=== PATIENT | female | born 1930 | race Caucasian/White ===

== ENCOUNTER 2016-11-22 16:11 | Inpatient (IN) ==
[2016-11-22 16:44] LABS: Red Cell Distribution Width 22.5 % (11.5-14.5)
[2016-11-22 16:46] LABS: Basophils % 0.1 %; Eosinophils # 0.1 K/mcL (0.0-0.6); Eosinophils % 0.7 %; Hematocrit 15.6 % (35.3-44.9); Immature Granulocytes % 0.4 % (0-4); Lymphocytes # 2.5 K/mcL (0.6-4.6); Lymphocytes % 23.2 %; Mean Corpuscular Hemoglobin 13.9 pg (28.0-33.3); Mean Corpuscular Volume 55.5 fL (83.0-100.0); Mean Platelet Volume 10.6 fL (9.4-12.4); Monocytes # 1.1 K/mcL (0.0-1.3); Monocytes % 10.6 %; Nucleated Red Blood Cells 0.7 /100 WBC (0); Platelet Count 434 K/mcL (140-400); Red Blood Count 2.81 M/mcL (3.82-4.97)
[2016-11-22 16:48] LABS: INR 1.2; Prothrombin Time 12.6 Seconds (9.4-12.1)
[2016-11-22 16:50] LABS: Activated Partial Thrombo Time 22.8 Seconds (26.0-36.0); Hemoglobin 3.9 g/dL (11.5-15.4)
[2016-11-22 16:54] LABS: BUN/Creatinine Ratio 22 (6-26); Blood Urea Nitrogen 19 mg/dL (7-20); Calcium 8.3 mg/dL (8.6-10.8); Carbon Dioxide 20 mEq/L (19-29); Chloride 109 mEq/L (98-109); Glucose 92 mg/dL (70-99); Osmolality,Calculated 296 (280-300); Sodium 142 mEq/L (136-145); eGFR For African Americans > 60 (> 60); eGFR For Non-African Americans > 60 (> 60)
--- NOTE | 2016-11-22 16:56 | Emergency Department Note ---
Disposition Clinical Impression: Rectal bleeding, Rectal bleeding Anemia Qualifiers: Anemia type: unspecified type Qualified Code(s): D64.9 - Anemia, unspecified Disposition: Admitted As Inpatient Condition: Fair Referrals: Frank Mcdonald MD [Primary Care Provider] - Forms: ED Satisfaction Letter Time of Disposition: 17:16 Recheck wound or abnormal lab - General Chief Complaint: ED Recheck/Abnormal Lab/Rx Stated Complaint: Low Hgb Time Seen by Provider: 11/22/16 16:16 Source: patient Limitations: no limitations Nursing Notes Reviewed: Yes Vital Signs Reviewed: Yes - History of Present Illness HPI Narrative: 86-year-old who states that she's had some increasing weakness and a little bit of shortness of breath. She was actually having some back problems had an MRI that showed stenosis and was scheduled have injections in her back today. She had some lab work done yesterday that clotted and so she went back in today to have lab work done and was found to have a hemoglobin of 3.2 was sent in. Says intermittently she'll have a little blood in her stool but not bad. Pt Subjective Complaint: abnormal lab(s) Initial Visit (ago): day(s) (1) - Related Data Home Medications Medication Instructions Recorded Confirmed Acetaminophen w/Cod 300-30 mg 1 each PO Q6H PRN 11/22/16 11/22/16 [Tylenol w/Codeine #3] Amlodipine Besylate 10 mg PO DAILY 11/22/16 11/22/16 Aspirin Enteric Coated [Aspirin EC] 81 mg PO DAILY 11/22/16 11/22/16 Calcium Carbonate/Vitamin D3 1 each PO DAILY 11/22/16 11/22/16 [Calcium 600 + Vit D Tablet] Cyclosporine [Restasis Multidose] 1 drop OP HS 11/22/16 11/22/16 Gluc Polanco/Chondro Polanco A/Vit C/Mn 1 each PO DAILY 11/22/16 11/22/16 [Glucosamine Chondroitin Tab] LORazepam [Ativan] 1 mg PO HS 11/22/16 11/22/16 Losartan/Hydrochlorothiazide 1 each PO DAILY 11/22/16 11/22/16 [Hyzaar 100-25 Tablet] Multivitamin [Multi-Day Vitamins] 1 each PO DAILY 11/22/16 11/22/16 [place]-3/Dha/Epa/Fish Oil [Fish Oil 1,000 mg PO DAILY 11/22/16 11/22/16 1,000 mg Softgel] Omeprazole Magnesium [Prilosec Otc] 20 mg PO DAILY 11/22/16 11/22/16 Potassium Chloride [Klor-Con 10] 20 meq PO DAILY 11/22/16 11/22/16 Allergies Allergy/AdvReac Type Severity Reaction Status Date / Time No Known Allergies Allergy Verified 06/03/16 13:32 Constitutional: Denies: fever, chills, weakness, weight change Eyes: Denies: eye pain, eye discharge, vision change ENT ED: Denies: ear pain, throat pain, dental pain, hearing loss, epistaxis, congestion, dysphagia Cardiovascular: Reports: dyspnea on exertion. Denies: chest pain, palpitations , edema, syncope Respiratory: Denies: cough, dyspnea, wheezes, hemoptysis, stridor Gastrointestinal: Denies: abdominal pain, nausea, vomiting, diarrhea, constipation, hematemesis, melena, hematochezia Genitourinary: Denies: dysuria, frequency, hematuria, discharge Musculoskeletal: Denies: back pain, neck pain, arthralgia, myalgia Integumentary: Denies: rash, abrasion, lesions Neurological: Denies: headache, weakness, numbness, paresthesias, confusion, abnormal gait, vertigo Psychiatric: Denies: anxiety, depression, suicidal thoughts, homicidal thoughts , auditory hallucinations, visual hallucinations Endocrine: Denies: fatigue Hematological/Lymphatic: Denies: easy bleeding, easy bruising Allergic/Immunologic: Denies: facial swelling, urticaria Past Medical History - Past Medical History Medical history: Reports: arthritis, hypertension Psychiatric history: Reports: no psych history - Social History Smoking Status: Never smoker Smokeless Tobacco Status: No Alcohol use: Reports: none Drug use: Reports: none Physical Exam - General Limitations: no limitations General appearance: alert - Head Head exam: atraumatic, normocephalic, normal inspection - Eye Eye exam: Present: normal appearance, PERRL, EOMI - ENT ENT exam: normal exam - Neck Neck exam: Present: normal inspection, full ROM, trachea midline - Chest Chest inspection: Present: normal inspection, symmetric chest wall rise - Respiratory Respiratory exam: Present: normal lung sounds bilaterally - Cardiovascular Cardiovascular exam: Present: regular rate, normal rhythm, normal heart sounds - Abdominal Exam Abdominal exam: Present: soft, Non-Tender. Absent: tenderness, distention, guarding, rebound, rigidity - Rectal Exam [employer] Manager present during exam: Yes Rectal exam: Present: hemorrhoids, other (Brown stool) - Extremities Exam Extremities exam: Present: normal inspection, full ROM. Absent: tenderness, pedal edema - Expanded Lower Extremity Exam Neurovascular/Tendon exam: Absent: motor deficit, sensory deficit, tendon deficit Gait: not tested/not observed - Back Exam Back exam: Present: normal inspection, full ROM. Absent: tenderness - Neurological Exam Neurological exam: Present: alert, oriented X3 - Psychiatric Psychiatric exam: Present: normal affect, normal mood - Skin Skin exam: Present: warm, dry, intact, normal color Course - Reevaluation(s) Reevaluation #1: 86-year-old female comes in with symptoms of some weakness and exertional dyspnea and she was doing preop labs for a nerve injection was found to have a hemoglobin of 3.2. She says she has had some intermittent small amount of blood in her stool but she chalked it up to her external hemorrhoids. On exam here her stool was brown was no blood associated with it. She will be admitted for further evaluation and treatment. Time: 17:15 - Consultations Consultation #1: Discussed with , admit. Time: 17:16 Vital Signs Temperature 97.7 F 11/22/16 16:25 Pulse Rate 100 11/22/16 16:25 Respiratory Rate 18 11/22/16 16:25 Blood Pressure 143/58 11/22/16 16:25 O2 Sat by Pulse Oximetry 100 11/22/16 16:25 Temperature 97.7 F 11/22/16 16:25 Pulse Rate 100 11/22/16 16:25 Respiratory Rate 18 11/22/16 16:25 Blood Pressure 143/58 11/22/16 16:25 O2 Sat by Pulse Oximetry 100 11/22/16 16:25 Oxygen Delivery Oxygen Delivery Room Air Recheck wound or abnormal lab - Lab Data Result diagrams: 11/22/16 16:37 11/22/16 16:37 Lab Results 11/22/16 11/22/16 11/22/16 Range/Units 16:37 16:37 16:37 WBC 10.8 (4.3-11.1) K/mcL RBC 2.81 L (3.82-4.97) M/mcL Hgb 3.9 L* (11.5-15.4) g/dL Hct 15.6 L (35.3-44.9) % MCV 55.5 L (83.0-100.0) fL MCH 13.9 L (28.0-33.3) pg MCHC 25.0 L (31.6-35.5) g/dL RDW 22.5 H (11.5-14.5) % Plt Count 434 H (140-400) K/mcL MPV 10.6 (9.4-12.4) fL Immature Gran % 0.4 (0-4) % Seg Neutrophils % 65.0 % Lymphocytes % 23.2 % Monocytes % 10.6 % Eosinophils % 0.7 % Basophils % 0.1 % Neutrophils # 7.0 (1.6-8.9) K/mcL Lymphocytes # 2.5 (0.6-4.6) K/mcL Monocytes # 1.1 (0.0-1.3) K/mcL Eosinophils # 0.1 (0.0-0.6) K/mcL Basophils # 0.0 (0.0-0.2) K/mcL Nucleated RBCs/100 WBC 0.7 H (0) /100 WBC Platelet Estimate Normal (Normal) Hypochromasia Present A (Not Present) Poikilocytosis 2+ A (Not Present) Anisocytosis 2+ A (Not Present) Microcytosis Present A (Not Present) Ovalocytes 1+ A (Not Present) PT 12.6 H (9.4-12.1) Seconds INR 1.2 APTT 22.8 L (26.0-36.0) Seconds Sodium 142 (136-145) mEq/L Potassium 4.0 (3.5-4.5) mEq/L Chloride 109 (98-109) mEq/L Carbon Dioxide 20 (19-29) mEq/L BUN 19 (7-20) mg/dL Creatinine 0.85 (0.57-1.11) mg/dL Est GFR ( Amer) > 60 (> 60) Est GFR (Non-Af Amer) > 60 (> 60) BUN/Creatinine Ratio 22 (6-26) Glucose 92 (70-99) mg/dL Calculated Osmolality 296 (280-300) Calcium 8.3 L (8.6-10.8) mg/dL Troponin I (0-0.03) ng/mL Stool Occult Blood (Negative) Blood Type Antibody Screen Crossmatch 11/22/16 11/22/16 11/22/16 Range/Units 16:37 16:37 17:00 WBC (4.3-11.1) K/mcL RBC (3.82-4.97) M/mcL Hgb (11.5-15.4) g/dL Hct (35.3-44.9) % MCV (83.0-100.0) fL MCH (28.0-33.3) pg MCHC (31.6-35.5) g/dL RDW (11.5-14.5) % Plt Count (140-400) K/mcL MPV (9.4-12.4) fL Immature Gran % (0-4) % Seg Neutrophils % % Lymphocytes % % Monocytes % % Eosinophils % % Basophils % % Neutrophils # (1.6-8.9) K/mcL Lymphocytes # (0.6-4.6) K/mcL Monocytes # (0.0-1.3) K/mcL Eosinophils # (0.0-0.6) K/mcL Basophils # (0.0-0.2) K/mcL Nucleated RBCs/100 WBC (0) /100 WBC Platelet Estimate (Normal) Hypochromasia (Not Present) Poikilocytosis (Not Present) Anisocytosis (Not Present) Microcytosis (Not Present) Ovalocytes (Not Present) PT (9.4-12.1) Seconds INR APTT (26.0-36.0) Seconds Sodium (136-145) mEq/L Potassium (3.5-4.5) mEq/L Chloride (98-109) mEq/L Carbon Dioxide (19-29) mEq/L BUN (7-20) mg/dL Creatinine (0.57-1.11) mg/dL Est GFR ( Amer) (> 60) Est GFR (Non-Af Amer) (> 60) BUN/Creatinine Ratio (6-26) Glucose (70-99) mg/dL Calculated Osmolality (280-300) Calcium (8.6-10.8) mg/dL Troponin I 0.01 (0-0.03) ng/mL Stool Occult Blood Positive A (Negative) Blood Type AB POSITIVE Antibody Screen NEGATIVE Crossmatch See Detail Critical Care Time Critical Care Time: Yes Total Critical Care Time: 30 Attestation: The high probability of a clinically significant, sudden or life threatening deterioration of the [hematologic] system(s) required my full and direct attention, intervention and personal management. The aggregate critical care time was [30] minutes. This time is in addition to time spent performing reported procedures but includes the following: [x] Data Review and interpretation [x] Patient assessment and monitoring of vital signs [x] Documentation [x] Medication orders and management
[2016-11-22 17:10] LABS: Anisocytosis 2+ (Not Present); Hypochromasia Present (Not Present); Poikilocytosis 2+ (Not Present)
[2016-11-22 17:11] LABS: Microcytosis Present (Not Present); Ovalocytes 1+ (Not Present); Platelet Estimate Normal (Normal)
[2016-11-22] MEDS ORDERED: 0.9 % Sodium Chloride 1,000 ML ONE (17:52)
[2016-11-22] MEDS ORDERED: Naloxone 0.4 MG/ML INJ IVP PRN (22:14)
[2016-11-22] MEDS ORDERED: *HR* HYDROcodone/Acet 5/325 mg TABLET PO PRN (22:14)
[2016-11-22] MEDS ORDERED: Ondansetron ODT 4 MG TAB.RAPDIS SL PRN (22:14)
[2016-11-22] MEDS ORDERED: Acetaminophen 325 MG TABLET PO PRN (22:14)
--- NOTE | 2016-11-22 22:29 | Internal Med History&Physical ---
Date of Encounter: 11/22/16 Time of Encounter: 22:52 Assessment and Plan (1) Anemia Current visit: Yes Status: Acute Patient presents with SOB and weakness, found to have hemoglobin of 3.9. Patient is hemodynamically stable. Will transfuse 2 units pRBC and recheck hemoglobin. Anticipate that patient will like need a 3rd unit. Patient is likely anemic to some degree at baseline however we have no previous H&H to compare to. Cause of this acute drop in hemoglobin is unknown. However there is concern for a GI bleed. She does take aspirin at home so upper GI bleed is a consideration. Patient reports some minimal bright red blood when she wipes however denies large amounts of bright red blood or dark tarry stool. She does have a history of hemorrhoids. Will consult surgery for endoscopy evaluation. Will also order labs to further investigate cause of anemia. 1. Transfuse 2 units pRBC and recheck hemoglobin. Will likely need a 3rd unit 2. Trend hemoglobin 3. Consult surgery for endo eval 4. Clear liquid diet after midnight 5. Labs: folate, B12, iron profile, thyroid cascade, LDH 6. Hold aspirin Qualifiers: Anemia type: unspecified type Qualified Code(s): D64.9 - Anemia, unspecified (2) Rectal bleeding Current visit: Yes Status: Acute See plan as above. (3) Hypertension Current visit: Yes Status: Acute Patient with history of HTN. Will continue home medication. Qualifiers: Hypertension type: essential hypertension Qualified Code(s): I10 - Essential (primary) hypertension (4) GERD (gastroesophageal reflux disease) Current visit: Yes Status: Acute Patient with history of GERD. Will continue home medication Qualifiers: Esophagitis presence: esophagitis presence not specified Qualified Code(s) : K21.9 - Gastro-esophageal reflux disease without esophagitis Internal Medicine - H&P: HPI Chief complaint: Low hemoglobin Admitted From: Emergency Dept Plans for Post Hospital Care: Home History of present illness: Ms. Shabazz is a 86 year old female with PMH including arthritis, HTN, spinal stenosis, osteopena and GERD who presents to the ED with abnormal labs - patient found to have hemoglobin of 3.9. Patient was seen by her primary care doctor yesterday because she was concerned about increasing fatigue and shortness of breath. Her PCP ordered a CBC that was done today showing hemoglobin of 3.9. On discussion patient states that for the past 3-4 weeks she has noticed worsening shortness of breath especially with exertion. Patient reports that she has no underlying lung disease and that this SOB is new to her. She also states that she has felt weak and tired. Patient denies headache, lightheadedness, dizziness, syncope, chest pain/pressure, abdominal pain, nausea/vomiting, or changes in bowel or bladder. She reports that when she wipes she will notice minimal bright red blood but she denies any large amounts of bright red blood or dark, tarry stools. She just thought this was due to her hemorrhoids. Patient has never been told she had anemia before and she has never needed a transfusion. Her last colonoscopy was 20 years ago and she states it was normal. She denies any family history of colon cancer. In the ED, patient was afebrile, vital signs largely within normal limits. O2 saturation of around 95% on room air. Labs revealed a repeat Hgb of 3.9, PT of 12.6 and PTT of 22.8. Stool occult blood was positive. On exam, patient is awake and alert, in no acute distress. She did not appear particularly pale however her states that he thinks she has more color back. Heart regular rate and rhythm. Lungs clear to auscultation. Abdomen soft, nontender. No pedal edema. Past Med Surg Social Fam HX - Past Medical History Medical history: arthritis, hypertension Psychiatric history: no psych history - Past Surgical History Surgical History: appendectomy, cholecystectomy, thyroidectomy - Social History Smoking Status: Never smoker Smokeless Tobacco Status: No Alcohol use: none Drug use: none Internal Medicine - H&P: Meds Acetaminophen w/Cod 300-30 mg [Tylenol w/Codeine #3] 1 each PO Q6H PRN 11/22/16 [History] Amlodipine Besylate 10 mg PO DAILY 11/22/16 [History] Aspirin Enteric Coated [Aspirin EC] 81 mg PO DAILY 11/22/16 [History] Calcium Carbonate/Vitamin D3 [Calcium 600 + Vit D Tablet] 1 each PO DAILY [History] Cyclosporine [Restasis Multidose] 1 drop OP HS 11/22/16 [History] Gluc Polanco/Chondro Polanco A/Vit C/Mn [Glucosamine Chondroitin Tab] 1 each PO DAILY 12/06 [History] LORazepam [Ativan] 1 mg PO HS 11/22/16 [History] Losartan/Hydrochlorothiazide [Hyzaar 100-25 Tablet] 1 each PO DAILY 11/22/16 [ History] Multivitamin [Multi-Day Vitamins] 1 each PO DAILY 11/22/16 [History] [place]-3/Dha/Epa/Fish Oil [Fish Oil 1,000 mg Softgel] 1,000 mg PO DAILY 11/22/16 [History] Omeprazole Magnesium [Prilosec Otc] 20 mg PO DAILY 11/22/16 [History] Potassium Chloride [Klor-Con 10] 20 meq PO DAILY 11/22/16 [History] Allergies No Known Allergies Allergy (Verified 06/03/16 13:32) All Systems PM: A 10-system review of systems was performed and is negative for pertinent findings except as documented above in the HPI. - Constitutional Constitutional: fatigue, weakness, no chills, no fever(s), no falls - EENT Eyes: no change in vision Nose, mouth and throat: no nasal congestion, no nasal discharge, no sore throat - Cardiovascular Cardiovascular ROS IM: no chest pain, no dyspnea, no dyspnea on exertion, no edema, no irregular heart rhythm, no palpitations - Respiratory Respiratory: dyspnea on exertion, no cough, no dyspnea, no hemoptysis, no wheezing, no chest congestion - Gastrointestinal Gastrointestinal: heartburn, hematochezia, no abdominal pain, no coffee ground emesis, no constipation, no diarrhea, no hematemesis, no melena, no nausea, no vomiting - Genitourinary Genitourinary: no dysuria, no hematuria - Neurological Neurological ROS: no confusion, no dizziness, no headache(s) - Constitutional Vitals: Temp Pulse Resp BP Pulse Ox 98.1 F 88 16 135/62 95 11/22/16 21:17 11/22/16 21:17 11/22/16 21:17 11/22/16 21:17 11/22/16 21:17 General appearance: Present: A&O X 3, pleasant, no acute distress, answers questions appropriately - Head Head exam: Present: atraumatic, normal inspection, normocephalic - Eye Eye exam: Present: EOMI, normal appearance, PERRL - Respiratory Respiratory exam: Present: CTAB. Absent: decreased breath sounds, rales, rhonchi, wheezes - Cardiovascular Cardiovascular exam: Present: RRR - GI/Abdominal GI/Abdominal exam: Present: soft. Absent: distended, guarding, rebound, rigid, tenderness - Extremities Exam Extremities exam: Present: normal inspection. Absent: pedal edema - Neurological Exam Neurological exam: Present: alert, CN II-XII intact, oriented X3, no focal deficits Internal Med - H&P Results - Labs CBC & Chem 7: 11/22/16 16:37 11/22/16 16:37
[2016-11-22] MEDS: *HR* Acetaminophen w/Cod 300-30 mg 1 TAB TABLET PO PRN (23:07)
--- NOTE | 2016-11-22 23:12 | Event Note ---
Date of Encounter: 11/22/16 Time of Encounter: 22:15 I agree essentially with the assessment and plan of Resident, case discussed, plan agreed upon. The patient was evaluated at bedside. Ms. Shabazz is a 86 year old female with medical history significant for arthritis, HTN, spinal stenosis , osteopenia and GERD. She was referred by her pain specialist for evaluation and treatment of severe symptomatic anemia done pre-procedure. Hb=3.9 g/dL. Labs and imaging reviewed. Stool occult blood id positive, she reports history of internal hemmorhoids and intermittent scanty bleeding with stools. No melena. No hematemesis, no non-intentional weight loss. No abdominal pain. No personal or family history of GI malignancy. Abdomen soft, non-tender, no masses , digital rectal exam deferred. Agree with transfusion of 2u of PRBC, if <8 on recheck, repeat 1 more unit of PRBC. Will benefit from colonoscopy, perhaps EGD if colonoscopy does not explain her anemia. In view of her age, raising concern ability to complete out-patient endoscopy, and severity of anemia at presentation, will favor in-house colonoscopy. Consult endoscopist.
[2016-11-23 03:09] LABS: INR 1.2
[2016-11-23 03:12] LABS: Activated Partial Thrombo Time 27.9 Seconds (26.0-36.0)
[2016-11-23 03:24] LABS: Alanine Aminotransferase 10 Units/L (0-55); Albumin 2.8 g/dL (3.5-5.0); Albumin/Globulin Ratio 0.8 (1.1-2.2); Alkaline Phosphatase 46 Units/L (38-126); Aspartate Amino Transferase 13 Units/L (5-34); BUN/Creatinine Ratio 19 (6-26); Bilirubin,Total 0.5 mg/dL (0.2-1.2); Blood Urea Nitrogen 15 mg/dL (7-20); Calcium 8.2 mg/dL (8.6-10.8); Carbon Dioxide 21 mEq/L (19-29); Chloride 111 mEq/L (98-109); Globulin 3.4 g/dL (2.4-3.5); Glucose 99 mg/dL (70-99); Magnesium 1.8 mg/dL (1.6-2.6); Osmolality,Calculated 293 (280-300); Phosphorous 3.3 mg/dL (2.3-4.7); Potassium 3.8 mEq/L (3.5-4.5); Sodium 141 mEq/L (136-145); Total Protein 6.2 g/dL (6.0-8.3); eGFR For African Americans > 60 (> 60); eGFR For Non-African Americans > 60 (> 60)
[2016-11-23 03:44] LABS: Thyroid Stimulating Hormone 2.273 mcIU/mL (0.350-4.840)
[2016-11-23 05:12] LABS: Mean Platelet Volume 9.9 fL (9.4-12.4)
[2016-11-23 05:15] LABS: Basophils % 0.4 %; Eosinophils # 0.1 K/mcL (0.0-0.6); Eosinophils % 1.1 %; Hemoglobin 6.2 g/dL (11.5-15.4); Immature Granulocytes % 0.5 % (0-4); Immature Platelets 5.2 % (1.1-6.1); Lymphocytes # 2.1 K/mcL (0.6-4.6); Lymphocytes % 25.2 %; Mean Corpuscular HGB Conc 28.2 g/dL (31.6-35.5); Monocytes # 0.8 K/mcL (0.0-1.3); Monocytes % 10.2 %; Neutrophils # 5.1 K/mcL (1.6-8.9); Nucleated Red Blood Cells 0.6 /100 WBC (0); Platelet Count 323 K/mcL (140-400); Red Blood Count 3.44 M/mcL (3.82-4.97); Red Cell Distribution Width 30.3 % (11.5-14.5); Segmented Neutrophils % 62.6 %
[2016-11-23 05:33] LABS: Anisocytosis 3+ (Not Present); Hypochromasia Present (Not Present); Microcytosis Present (Not Present)
[2016-11-23 05:34] LABS: Ovalocytes 1+ (Not Present); Platelet Estimate Normal (Normal); Poikilocytosis 1+ (Not Present); Polychromasia 1+ (Not Present)
[2016-11-23 05:35] LABS: Reactive Lymphocytes Present (Not Present); Tear Drop Cells 1+ (Not Present)
[2016-11-23] MEDS: Multivit/Ca/Min/Fe/FA 1 TAB TABLET PO SCH (08:00)
[2016-11-23] MEDS: amLODIPine 5 MG TABLET PO SCH (08:00)
[2016-11-23] MEDS: Losartan/HCTZ 50-12.5 TABLET PO SCH (08:01)
[2016-11-23] MEDS: (Glucosamine Chondroit) PO SCH (08:01)
[2016-11-23] MEDS: (Fish Oil 1,000 Mg Softgel) PO SCH (08:01)
[2016-11-23] MEDS ORDERED: 0.9 % Sodium Chloride 500 ML ONE (08:09)
--- NOTE | 2016-11-23 08:49 | General Surgery Consult Note ---
<Chandan Figueroa - Last Filed: 11/23/16 11:11> Date of Encounter: 11/23/16 Time of Encounter: 07:50 Assessment and Plan (1) Anemia Current Visit: Yes Status: Acute She has been transfused 2 units. Currently on the 3rd unit with additional units ordered. Clears liquid diet at this time. NPO at midnight for EGD and colonoscopy tomorrow if bowel prep is adequate. Miralax bowel prep ordered. Qualifiers: Anemia type: iron deficiency Iron deficiency anemia type: unspecified iron deficiency Qualified Code(s): D50.9 - Iron deficiency anemia, unspecified (2) GERD (gastroesophageal reflux disease) Current Visit: Yes Status: Acute Management per medicine team. Continue home medication. Qualifiers: Esophagitis presence: esophagitis presence not specified Qualified Code(s) : K21.9 - Gastro-esophageal reflux disease without esophagitis (3) Hypertension Current Visit: Yes Status: Acute Management per medicine team. Continue home medication. Qualifiers: Hypertension type: essential hypertension Qualified Code(s): I10 - Essential (primary) hypertension History of Present Illness Consult date: 11/23/16 Reason for consult: endoscopy Requesting physician: Anne-Marie Santoro History of present illness: This is an 86 year old female with PMH of arthritis, HTN, spinal stenosis, osteopenia, and GERD who presented for abnormal labs. She states she was scheduled to have surgery for her spinal stenosis and underwent routine lab work when she was found to have low hemoglobin. She presented with a hemoglobin of 3.9 in the ED and reports that her only symptom was worsening shortness of breath upon exertion. She denies chest pain, palpitations, light headedness, and any syncopal episodes. She states she will occasionally have some blood on the toilet paper after wiping, but denies gross hematochezia and melena. She reports her last colonoscopy was 20 years ago and was normal. She has had a history of anemia in the past, but has never required a transfusion. She denies any family history of colon cancer. Past Med Surg Social Fam HX - Past Medical History Medical history: arthritis, hypertension Psychiatric history: no psych history - Past Surgical History Surgical History: appendectomy, cholecystectomy, thyroidectomy - Social History Smoking Status: Never smoker Smokeless Tobacco Status: No Alcohol use: none Drug use: none - Family History Father Hx Family Cardiac Disorders: Yes (hypertension) Hx Family Endocrine Disorder: Yes (diabetes) Medications and Allergies Acetaminophen w/Cod 300-30 mg [Tylenol w/Codeine #3] 1 each PO Q6H PRN 11/22/16 [History] Amlodipine Besylate 10 mg PO DAILY 11/22/16 [History] Aspirin Enteric Coated [Aspirin EC] 81 mg PO DAILY 11/22/16 [History] Calcium Carbonate/Vitamin D3 [Calcium 600 + Vit D Tablet] 1 each PO DAILY [History] Cyclosporine [Restasis Multidose] 1 drop OP HS 11/22/16 [History] Gluc Polanco/Chondro Polanco A/Vit C/Mn [Glucosamine Chondroitin Tab] 1 each PO DAILY 12/06 [History] LORazepam [Ativan] 1 mg PO HS 11/22/16 [History] Losartan/Hydrochlorothiazide [Hyzaar 100-25 Tablet] 1 each PO DAILY 11/22/16 [ History] Multivitamin [Multi-Day Vitamins] 1 each PO DAILY 11/22/16 [History] [place]-3/Dha/Epa/Fish Oil [Fish Oil 1,000 mg Softgel] 1,000 mg PO DAILY 11/22/16 [History] Omeprazole Magnesium [Prilosec Otc] 20 mg PO DAILY 11/22/16 [History] Potassium Chloride [Klor-Con 10] 20 meq PO DAILY 11/22/16 [History] Allergies No Known Allergies Allergy (Verified 06/03/16 13:32) Review of Systems All systems PM: A 10-system review of systems was performed and is negative for pertinent findings except as documented above in the HPI. - Constitutional fatigue, weakness, no fever(s), no headache(s) - EENT Nose, mouth and throat: no dizziness, no dry mouth, no dysphagia - Cardiovascular dyspnea on exertion, no chest pain, no irregular heart rhythm, no leg edema - Respiratory dyspnea on exertion, no cough, no hemoptysis - Gastrointestinal no abdominal pain, no dysphagia, no melena, no nausea, no vomiting - Genitourinary Genitourinary: no dysuria - Musculoskeletal back pain (chronic) - Hematologic/Lymphatic no easy bleeding, no easy bruising General Surgery Exam Initial Vital Signs Temp Pulse Resp BP Pulse Ox 97.7 F 100 18 143/58 100 11/22/16 16:25 11/22/16 16:25 11/22/16 16:25 11/22/16 16:25 11/22/16 16:25 - General physical appearance well developed, well nourished, no distress - Eyes normal ocular movement, pale - ENT normal mucosa, atraumatic, normocephalic - Neck trachea midline - Respiratory normal respiratory effort, clear to auscultation - Cardiovascular Cardiovascular exam: Present: RRR, murmurs - Abdomen Abdomen general surgery: Present: bowel sounds present, soft, non tender - Integumentary Integumentary general surgery: Present: warm and dry - Neurologic Present: CN 2-12 grossly intact - Musculoskeletal Present: normal posture - Psychiatric Psychiatric general surgery: Present: A&Ox3, speech is normal Exam Initial Vital Signs Temp Pulse Resp BP Pulse Ox 97.7 F 100 18 143/58 100 11/22/16 16:25 11/22/16 16:25 11/22/16 16:25 11/22/16 16:25 11/22/16 16:25 Results - Labs 11/23/16 05:01 11/23/16 02:53 Abnormal lab results RBC 3.44 M/mcL (3.82-4.97) L 11/23/16 05:01 Hgb 6.2 g/dL (11.5-15.4) L D 11/23/16 05:01 Hct 22.0 % (35.3-44.9) L 11/23/16 05:01 MCV 64.0 fL (83.0-100.0) L D 11/23/16 05:01 MCH 18.0 pg (28.0-33.3) L 11/23/16 05:01 MCHC 28.2 g/dL (31.6-35.5) L 11/23/16 05:01 RDW 30.3 % (11.5-14.5) H 11/23/16 05:01 Nucleated RBCs/100 WBC 0.6 /100 WBC (0) H 11/23/16 05:01 Reactive Lymphocytes Present (Not Present) A 11/23/16 05:01 Polychromasia 1+ (Not Present) A 11/23/16 05:01 Hypochromasia Present (Not Present) A 11/23/16 05:01 Poikilocytosis 1+ (Not Present) A 11/23/16 05:01 Anisocytosis 3+ (Not Present) A 11/23/16 05:01 Microcytosis Present (Not Present) A 11/23/16 05:01 Tear Drop Cells 1+ (Not Present) A 11/23/16 05:01 Ovalocytes 1+ (Not Present) A 11/23/16 05:01 PT 13.0 Seconds (9.4-12.1) H 11/23/16 02:53 Chloride 111 mEq/L (98-109) H 11/23/16 02:53 Calcium 8.2 mg/dL (8.6-10.8) L 11/23/16 02:53 Iron 14 mcg/dL (50-170) L 11/23/16 02:53 % Saturation 3 % (15-50) L 11/23/16 02:53 Albumin 2.8 g/dL (3.5-5.0) L 11/23/16 02:53 Albumin/Globulin Ratio 0.8 (1.1-2.2) L 11/23/16 02:53 Stool Occult Blood Positive (Negative) A 11/22/16 17:00 Diabetes panel 11/23/16 Range/Units 02:53 Sodium 141 (136-145) mEq/L Potassium 3.8 (3.5-4.5) mEq/L Chloride 111 H (98-109) mEq/L Carbon Dioxide 21 (19-29) mEq/L BUN 15 (7-20) mg/dL Creatinine 0.77 (0.57-1.11) mg/dL Glucose 99 (70-99) mg/dL Calcium 8.2 L (8.6-10.8) mg/dL AST 13 (5-34) Units/L ALT 10 (0-55) Units/L Alkaline Phosphatase 46 (38-126) Units/L Albumin 2.8 L (3.5-5.0) g/dL Thyroid panel 11/23/16 Range/Units 02:53 TSH 2.273 (0.350-4.840) mcIU/mL Calcium panel 11/23/16 Range/Units 02:53 Calcium 8.2 L (8.6-10.8) mg/dL Phosphorus 3.3 (2.3-4.7) mg/dL Albumin 2.8 L (3.5-5.0) g/dL Pituitary panel 11/23/16 11/23/16 Range/Units 02:53 02:53 Sodium 141 (136-145) mEq/L Potassium 3.8 (3.5-4.5) mEq/L Chloride 111 H (98-109) mEq/L Carbon Dioxide 21 (19-29) mEq/L BUN 15 (7-20) mg/dL Creatinine 0.77 (0.57-1.11) mg/dL Glucose 99 (70-99) mg/dL Calcium 8.2 L (8.6-10.8) mg/dL TSH 2.273 (0.350-4.840) mcIU/mL Adrenal panel 11/23/16 Range/Units 02:53 Sodium 141 (136-145) mEq/L Potassium 3.8 (3.5-4.5) mEq/L Chloride 111 H (98-109) mEq/L Carbon Dioxide 21 (19-29) mEq/L BUN 15 (7-20) mg/dL Creatinine 0.77 (0.57-1.11) mg/dL Glucose 99 (70-99) mg/dL Calcium 8.2 L (8.6-10.8) mg/dL Total Bilirubin 0.5 (0.2-1.2) mg/dL AST 13 (5-34) Units/L ALT 10 (0-55) Units/L Alkaline Phosphatase 46 (38-126) Units/L Albumin 2.8 L (3.5-5.0) g/dL All other labs normal. Consult Discharge Plan - Plan Referrals: Frank Mcdonald MD [Primary Care Provider] - - Attending Attestation I examined this patient and my medical decision-making was reviewed with the DAIRY FARMER/PA/Advanced Practice Nurse/Resident Physician. I agree with the documented findings, disposition and treatment plan as described except to the extent set forth below. <Teofilo Salas M - Last Filed: 11/24/16 07:33> Date of Encounter: 11/24/16 Review of Systems All systems PM: A 10-system review of systems was performed and is negative for pertinent findings except as documented above in the HPI. General Surgery Exam Initial Vital Signs Temp Pulse Resp BP Pulse Ox 97.7 F 100 18 143/58 100 11/22/16 16:25 11/22/16 16:25 11/22/16 16:25 11/22/16 16:25 11/22/16 16:25 Exam Initial Vital Signs Temp Pulse Resp BP Pulse Ox 97.7 F 100 18 143/58 100 11/22/16 16:25 11/22/16 16:25 11/22/16 16:25 11/22/16 16:25 11/22/16 16:25 Results - Labs 11/24/16 00:01 11/24/16 05:39 Abnormal lab results RBC 5.17 M/mcL (3.82-4.97) H 11/24/16 00:01 Hgb 10.8 g/dL (11.5-15.4) L D 11/24/16 00:01 MCV 69.2 fL (83.0-100.0) L 11/24/16 00:01 MCH 20.9 pg (28.0-33.3) L 11/24/16 00:01 MCHC 30.2 g/dL (31.6-35.5) L 11/24/16 00:01 RDW 28.4 % (11.5-14.5) H 11/24/16 00:01 Nucleated RBCs/100 WBC 0.7 /100 WBC (0) H 11/24/16 00:01 Reactive Lymphocytes Present (Not Present) A 11/23/16 05:01 Large Platelets Present (Not Present) A 11/24/16 00:01 Polychromasia 1+ (Not Present) A 11/24/16 00:01 Hypochromasia Present (Not Present) A 11/24/16 00:01 Poikilocytosis 1+ (Not Present) A 11/24/16 00:01 Anisocytosis 3+ (Not Present) A 11/24/16 00:01 Microcytosis Present (Not Present) A 11/23/16 05:01 Tear Drop Cells 1+ (Not Present) A 11/23/16 05:01 Ovalocytes 1+ (Not Present) A 11/23/16 05:01 PT 13.0 Seconds (9.4-12.1) H 11/23/16 02:53 Chloride 111 mEq/L (98-109) H 11/24/16 05:39 BUN 6 mg/dL (7-20) L 11/24/16 05:39 Calcium 8.1 mg/dL (8.6-10.8) L 11/24/16 05:39 Iron 14 mcg/dL (50-170) L 11/23/16 02:53 % Saturation 3 % (15-50) L 11/23/16 02:53 Albumin 2.8 g/dL (3.5-5.0) L 11/23/16 02:53 Albumin/Globulin Ratio 0.8 (1.1-2.2) L 11/23/16 02:53 Stool Occult Blood Positive (Negative) A 11/22/16 17:00 Diabetes panel 11/24/16 Range/Units 05:39 Sodium 141 (136-145) mEq/L Potassium 3.6 (3.5-4.5) mEq/L Chloride 111 H (98-109) mEq/L Carbon Dioxide 20 (19-29) mEq/L BUN 6 L (7-20) mg/dL Creatinine 0.68 (0.57-1.11) mg/dL Glucose 91 (70-99) mg/dL Calcium 8.1 L (8.6-10.8) mg/dL Calcium panel 11/24/16 Range/Units 05:39 Calcium 8.1 L (8.6-10.8) mg/dL Phosphorus 4.0 (2.3-4.7) mg/dL Pituitary panel 11/24/16 Range/Units 05:39 Sodium 141 (136-145) mEq/L Potassium 3.6 (3.5-4.5) mEq/L Chloride 111 H (98-109) mEq/L Carbon Dioxide 20 (19-29) mEq/L BUN 6 L (7-20) mg/dL Creatinine 0.68 (0.57-1.11) mg/dL Glucose 91 (70-99) mg/dL Calcium 8.1 L (8.6-10.8) mg/dL Adrenal panel 11/24/16 Range/Units 05:39 Sodium 141 (136-145) mEq/L Potassium 3.6 (3.5-4.5) mEq/L Chloride 111 H (98-109) mEq/L Carbon Dioxide 20 (19-29) mEq/L BUN 6 L (7-20) mg/dL Creatinine 0.68 (0.57-1.11) mg/dL Glucose 91 (70-99) mg/dL Calcium 8.1 L (8.6-10.8) mg/dL All other labs normal. - Attending Attestation I had an opportunity to evaluate this patient with the residents and medical student. Noted 20 year past history of colonoscopy. Patient denies any rectal bleeding but has presented due to shortness of breath and noted severe anemia with iron deficiency. No abdominal pain on examination and per records patient' s hemoglobin has appropriately risen with blood transfusion. Given her iron deficiency anemia due to think it would be appropriate to proceed with both an EGD and colonoscopy at this time. Will start a bowel prep today with tentative EGD /colonoscopy tomorrow.
[2016-11-23] MEDS ORDERED: Polyethylene Glycol 3350 255 GM POWDER PO ONE ×2 (09:53→12:00)
--- NOTE | 2016-11-23 12:21 | Internal Med Progress Note ---
Date of Encounter: 11/23/16 Time of Encounter: 12:19 - Assessment and plan (1) Anemia Current Visit: Yes Status: Acute Assessment and plan: Severe symptomatic anemia likely secondary to acute blood loss anemia(GI Bleed) however patient does have underlying iron deficiency anemia Patient to receive a total of 5unit PRBC transfusion No active bleeding noted at this time Surgery eval appreciated patient to undergo colonoscopy in the morning, bowel prep as per surgery advance to clear liquid diet and NPO after midnight Will continue to closely monitor will initiate iron supplementation after EGD/Colonoscopy Qualifiers: Anemia type: iron deficiency Iron deficiency anemia type: unspecified iron deficiency Qualified Code(s): D50.9 - Iron deficiency anemia, unspecified (2) GERD (gastroesophageal reflux disease) Current Visit: Yes Status: Acute Assessment and plan: continue home medications Qualifiers: Esophagitis presence: esophagitis presence not specified Qualified Code(s) : K21.9 - Gastro-esophageal reflux disease without esophagitis (3) Hypertension Current Visit: Yes Status: Acute Assessment and plan: BP within acceptable range continue home medications Qualifiers: Hypertension type: essential hypertension Qualified Code(s): I10 - Essential (primary) hypertension (4) Rectal bleeding Current Visit: Yes Status: Acute Assessment and plan: plan as listed above surgery on board (5) DVT prophylaxis Current Visit: Yes Status: Acute Assessment and plan: IPCD (6) Chronic back pain Current Visit: Yes Status: Chronic Assessment and plan: continue home meds Qualifiers: Back pain location: low back pain Back pain laterality: unspecified Sciatica presence: unspecified whether sciatica present Qualified Code(s): M54.5 - Low back pain; G89.29 - Other chronic pain - Subjective Interval history: Patient seen and examined at bedside. Resting comfortably in bed and reports of feeling better. Reports of having BRBPR but contributed it to hemorrhoids. No prior history of GI bleed reported. Denies headache, lightheadedness, sob, chest pain at this time. - Constitutional Vitals: Temp Pulse Resp BP Pulse Ox 98.3 F 81 16 136/68 96 11/23/16 12:03 11/23/16 12:03 11/23/16 12:03 11/23/16 12:03 11/23/16 12:03 General appearance: Present: cooperative, A&O X 3, pleasant, no acute distress, obese, answers questions appropriately - Head Head exam: Present: atraumatic, normocephalic - Eye Eye exam: Present: normal appearance, conjuntiva pink, sclera anicteric - Respiratory Respiratory exam: Present: CTAB. Absent: respiratory distress, wheezes - Cardiovascular Cardiovascular exam: Present: RRR, +S1, +S2 - GI/Abdominal GI/Abdominal exam: Present: normal bowel sounds, soft. Absent: distended, tenderness - Extremities Exam Extremities exam: Present: warm, radial pulses palpable and symetrical. Absent : calf tenderness, pedal edema, tenderness - Neurological Exam Neurological exam: Present: alert, oriented X3, no focal deficits - Psychiatric Psychiatric exam: Present: normal affect, normal mood Internal Medicine: Result - Labs CBC & Chem 7: 11/23/16 05:01 11/23/16 02:53 Labs: Short CBC 11/23/16 Range/Units 05:01 WBC 8.2 (4.3-11.1) K/mcL Hgb 6.2 L D (11.5-15.4) g/dL Hct 22.0 L (35.3-44.9) % Plt Count 323 (140-400) K/mcL Neutrophils # 5.1 (1.6-8.9) K/mcL BMP 11/23/16 02:53 Sodium 141 Potassium 3.8 Chloride 111 H Carbon Dioxide 21 BUN 15 Creatinine 0.77 Glucose 99 Calcium 8.2 L Liver Function 11/23/16 Range/Units 02:53 Total Bilirubin 0.5 (0.2-1.2) mg/dL AST 13 (5-34) Units/L ALT 10 (0-55) Units/L Alkaline Phosphatase 46 (38-126) Units/L Albumin 2.8 L (3.5-5.0) g/dL - ABG Interpretation ABG results: PT/INR, D-dimer PT 13.0 Seconds (9.4-12.1) H 11/23/16 02:53 Consult Discharge Plan - Plan Referrals: Frank Mcdonald MD [Primary Care Provider] -
[2016-11-23] MEDS: *HR* Acetaminophen w/Cod 300-30 mg 1 TAB TABLET PO PRN (15:41)
[2016-11-23] MEDS: (Cyclosporine [Restasis Multidose] 1 DROP) OP SCH (20:04)
[2016-11-23] MEDS: *HR* LORazepam 1 MG TABLET PO SCH (23:28)
[2016-11-24 00:27] LABS: Basophils # 0.1 K/mcL (0.0-0.2); Basophils % 0.6 %; Eosinophils # 0.2 K/mcL (0.0-0.6); Eosinophils % 1.4 %; Hematocrit 35.8 % (35.3-44.9); Immature Granulocytes % 0.6 % (0-4); Lymphocytes # 2.2 K/mcL (0.6-4.6); Lymphocytes % 20.7 %; Mean Corpuscular HGB Conc 30.2 g/dL (31.6-35.5); Mean Corpuscular Hemoglobin 20.9 pg (28.0-33.3); Mean Corpuscular Volume 69.2 fL (83.0-100.0); Neutrophils # 6.8 K/mcL (1.6-8.9); Nucleated Red Blood Cells 0.7 /100 WBC (0); Platelet Count 334 K/mcL (140-400); Red Blood Count 5.17 M/mcL (3.82-4.97); Red Cell Distribution Width 28.4 % (11.5-14.5); Segmented Neutrophils % 65.7 %
[2016-11-24 00:40] LABS: Hemoglobin 10.8 g/dL (11.5-15.4); Monocytes # 1.1 K/mcL (0.0-1.3)
[2016-11-24 00:54] LABS: Anisocytosis 3+ (Not Present); Hypochromasia Present (Not Present)
[2016-11-24 00:55] LABS: Poikilocytosis 1+ (Not Present); Polychromasia 1+ (Not Present)
[2016-11-24 00:56] LABS: Large Platelets Present (Not Present); Platelet Estimate Normal (Normal)
[2016-11-24 06:02] LABS: BUN/Creatinine Ratio 9 (6-26); Blood Urea Nitrogen 6 mg/dL (7-20); Calcium 8.1 mg/dL (8.6-10.8); Carbon Dioxide 20 mEq/L (19-29); Chloride 111 mEq/L (98-109); Glucose 91 mg/dL (70-99); Magnesium 1.8 mg/dL (1.6-2.6); Osmolality,Calculated 289 (280-300); Potassium 3.6 mEq/L (3.5-4.5); Sodium 141 mEq/L (136-145); eGFR For African Americans > 60 (> 60); eGFR For Non-African Americans > 60 (> 60)
[2016-11-24] MEDS ORDERED: *HR* Midazolam HCl 5 MG/5 ML VIAL IVP ONE ×2 (08:43→09:11)
[2016-11-24] MEDS ORDERED: Simethicone 40 MG/0.6 ML MLS IR ONE (08:44)
[2016-11-24] MEDS ORDERED: Tetracaine/Benzocaine/Butamben 200MG/SPRAY (100SPY/BOT) MM ONE (08:44)
[2016-11-24] MEDS ORDERED: *HR* FentaNYL (PF) 100 MCG/2 ML VIAL ONE (08:44)
--- NOTE | 2016-11-24 08:44 | Pre-Sedation Evaluation ---
Pre-sedation evaluation - Pre-sedation checklist Recent Vitals: Last Vital Signs Temp 97.9 F 11/24/16 03:15 Pulse 84 11/24/16 03:15 Resp 14 11/24/16 03:15 BP 142/81 11/24/16 03:15 Pulse Ox 97 11/24/16 03:15 Airway Assessment: Patient can open mouth completely, TMJ function normal Possible difficult airway: No ASA Classification *see protocol: CLASS III-Severe systemic disease Plan of Care: Pt appropriate candidate for procedure/moderate/conscious sedation
[2016-11-24] MEDS ORDERED: 0.9 % Sodium Chloride 1,000 ML IVC SCH (08:45)
[2016-11-24] MEDS: amLODIPine 5 MG TABLET PO SCH (08:56)
[2016-11-24] MEDS: (Fish Oil 1,000 Mg Softgel) PO SCH (08:56)
[2016-11-24] MEDS: Losartan/HCTZ 50-12.5 TABLET PO SCH (08:56)
[2016-11-24] MEDS: Multivit/Ca/Min/Fe/FA 1 TAB TABLET PO SCH (08:56)
[2016-11-24] MEDS: (Glucosamine Chondroit) PO SCH (08:56)
[2016-11-24] MEDS: *HR* Midazolam HCl 5 MG/5 ML VIAL IVP PRN ×6 (09:04→21:41)
[2016-11-24] MEDS: *HR* FentaNYL (PF) 100 MCG/2 ML VIAL IVP PRN ×5 (09:04→09:17)
--- NOTE | 2016-11-24 09:39 | Event Note ---
Date of Encounter: 11/24/16 Time of Encounter: 09:37 Patient underwent an EGD and colonoscopy without difficulity this am. EGD demonstrated benign appearing gastric polyps. Biopsies obtained. The colon demonstrated a circumferential mass 90cm from the anal verge (possible proximal descending colon). Partial obstructing. Biopsies obtained and area has been tattooed and clipped for marking. Will advance diet and order CEA level as well as a CT scan of the abdomen and pelvis. After these studies have been performed she can be discharged home from a surgery standpoint and we will follow up with her later this week.
[2016-11-24 11:07] LABS: Carcinoembryonic Antigen 14.4 ng/mL (0-5.0)
--- NOTE | 2016-11-24 15:20 | Internal Med Progress Note ---
Date of Encounter: 11/24/16 Time of Encounter: 15:16 - Assessment and plan (1) Colon cancer Current Visit: Yes Status: Acute Assessment and plan: Colonoscopy showed: colon demonstrated a circumferential mass 90cm from the anal verge (possible proximal descending colon). Partial obstructing. Biopsies obtained and area has been tattooed and clipped for marking. 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 CEA elevated to 14.4 Oncology consultation requested with Dr. Kim Patient informed of the news Rectal bleeding likely secondary to underlying malignancy 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 (2) Anemia Current Visit: Yes Status: Acute Assessment and plan: S/P 5units PRBC transfusion REpeat H&H within acceptable range s/p EGD and colonscopy by Dr. Salas (consultation appreciated) Will start iron supplementation Qualifiers: Anemia type: iron deficiency Iron deficiency anemia type: unspecified iron deficiency Qualified Code(s): D50.9 - Iron deficiency anemia, unspecified (3) GERD (gastroesophageal reflux disease) Current Visit: Yes Status: Acute Assessment and plan: continue home medications Qualifiers: Esophagitis presence: esophagitis presence not specified Qualified Code(s) : K21.9 - Gastro-esophageal reflux disease without esophagitis (4) Hypertension Current Visit: Yes Status: Acute Assessment and plan: BP within acceptable range continue home medications Qualifiers: Hypertension type: essential hypertension Qualified Code(s): I10 - Essential (primary) hypertension (5) Rectal bleeding Current Visit: Yes Status: Acute Assessment and plan: plan as listed above (6) DVT prophylaxis Current Visit: Yes Status: Acute Assessment and plan: IPCD (7) Chronic back pain Current Visit: Yes Status: Chronic Assessment and plan: continue home meds Qualifiers: Back pain location: low back pain Back pain laterality: unspecified Sciatica presence: unspecified whether sciatica present Qualified Code(s): M54.5 - Low back pain; G89.29 - Other chronic pain - Subjective Interval history: Patient seen and examined with family present at bedside. Patient underwent EGD and colonoscopy today which reported of a colon mass which was biopsied. A CT abd/pelvis was done to evaluate the extent of the disease. CT abd/pelvis: Apple- core lesion of the transverse colon consistent with patient's primary site of colon cancer, concern for hepatic and pulmonary lesions for metastatic disease. I had a detailed discussion with the patient and let her know of her diagnosis and findings of the colonoscopy. Patient wants to speak to Oncology and explore what her available options are at this time. She denies any recurrent episodes of chest pain, SOB, LGIB, BRBPR, abd pain, n/v, fever, or chills. - Constitutional Vitals: Temp Pulse Resp BP Pulse Ox 97.7 F 69 16 137/73 98 11/24/16 12:04 11/24/16 13:20 11/24/16 12:04 11/24/16 12:04 11/24/16 12:04 General appearance: Present: cooperative, A&O X 3, pleasant, no acute distress, obese, answers questions appropriately - Head Head exam: Present: atraumatic, normocephalic - Eye Eye exam: Present: PERRL, conjuntiva pink, sclera anicteric - Respiratory Respiratory exam: Present: CTAB. Absent: accessory muscle use, rales, rhonchi, wheezes - Cardiovascular Cardiovascular exam: Present: RRR, +S1, +S2. Absent: diastolic murmur, gallop, rubs, systolic murmur - GI/Abdominal GI/Abdominal exam: Present: normal bowel sounds, soft, no peritoneal signs. Absent: distended, tenderness - Extremities Exam Extremities exam: Present: warm, radial pulses palpable and symetrical. Absent : calf tenderness, cyanotic, pedal edema - Neurological Exam Neurological exam: Present: alert, oriented X3 - Psychiatric Psychiatric exam: Present: normal affect, normal mood Internal Medicine: Result - Labs CBC & Chem 7: 11/24/16 00:01 11/24/16 05:39 Labs: Short CBC 11/24/16 Range/Units 00:01 WBC 10.4 (4.3-11.1) K/mcL Hgb 10.8 L D (11.5-15.4) g/dL Hct 35.8 (35.3-44.9) % Plt Count 334 (140-400) K/mcL Neutrophils # 6.8 (1.6-8.9) K/mcL BMP 11/24/16 05:39 Sodium 141 Potassium 3.6 Chloride 111 H Carbon Dioxide 20 BUN 6 L Creatinine 0.68 Glucose 91 Calcium 8.1 L - ABG Interpretation ABG results: PT/INR, D-dimer PT 13.0 Seconds (9.4-12.1) H 11/23/16 02:53 - Impressions Impressions Abdomen/Pelvis CT 11/24/16 12:30 IMPRESSION: 1. Large apple-core mass lesion of the transverse colon, consistent with patient's primary site of colon cancer. 2. Two subcentimeter low-density lesions within the hepatic parenchyma are too small to definitively characterize, though statistically most likely either cysts or hemangiomata. However, given the patient's colonic mass lesion, suggest short-term abdominal CT follow-up of these lesions to ensure stability, with the next abdominal CT recommended in 3-6 months. 3. Small bilateral pleural effusions with multiple bibasilar subcentimeter pulmonary nodules. These are felt to most likely represent benign granulomata. However, the patient is at high risk for pulmonary metastatic disease, and short-term chest CT follow-up in 3-6 months is strongly advised. D/ / 11/24/2016 14:29:07 Giovani Lang MD / bcarter Interpreting Provider: Giovani Lang MD - VTE Documentation of Mechanical Device: Intermittent pneumatic compression device Consult Discharge Plan - Plan Referrals: Frank Mcdonald MD [Primary Care Provider] -
[2016-11-24] MEDS ORDERED: Sennosides/Docusate Sodium TABLET PO PRN (15:24)
[2016-11-24] MEDS ORDERED: Insulin DETEMIR 100 UNIT/ML X5UNITS SQ SCH (21:00)
[2016-11-24] MEDS: *HR* LORazepam 1 MG TABLET PO SCH (21:04)
[2016-11-24] MEDS: *HR* Acetaminophen w/Cod 300-30 mg 1 TAB TABLET PO PRN (21:04)
[2016-11-24] MEDS: (Cyclosporine [Restasis Multidose] 1 DROP) OP SCH (21:05)
[2016-11-25 04:05] LABS: BUN/Creatinine Ratio 12 (6-26); Blood Urea Nitrogen 9 mg/dL (7-20); Calcium 8.4 mg/dL (8.6-10.8); Carbon Dioxide 23 mEq/L (19-29); Chloride 109 mEq/L (98-109); Glucose 89 mg/dL (70-99); Magnesium 1.9 mg/dL (1.6-2.6); Osmolality,Calculated 288 (280-300); Potassium 3.6 mEq/L (3.5-4.5); Sodium 140 mEq/L (136-145); eGFR For African Americans > 60 (> 60); eGFR For Non-African Americans > 60 (> 60)
[2016-11-25 04:56] LABS: Basophils # 0.1 K/mcL (0.0-0.2); Basophils % 0.9 %; Eosinophils # 0.3 K/mcL (0.0-0.6); Eosinophils % 2.6 %; Hematocrit 35.4 % (35.3-44.9); Hemoglobin 10.2 g/dL (11.5-15.4); Immature Granulocytes % 0.3 % (0-4); Immature Platelets 5.5 % (1.1-6.1); Lymphocytes # 2.1 K/mcL (0.6-4.6); Lymphocytes % 21.7 %; Mean Corpuscular HGB Conc 28.8 g/dL (31.6-35.5); Mean Corpuscular Hemoglobin 20.4 pg (28.0-33.3); Mean Corpuscular Volume 70.8 fL (83.0-100.0); Monocytes % 10.5 %; Neutrophils # 6.2 K/mcL (1.6-8.9); Nucleated Red Blood Cells 0.3 /100 WBC (0); Platelet Count 294 K/mcL (140-400); Red Cell Distribution Width 29.3 % (11.5-14.5)
[2016-11-25 05:30] LABS: Anisocytosis 3+ (Not Present); Hypochromasia Present (Not Present); Platelet Estimate Normal (Normal)
[2016-11-25 05:31] LABS: Polychromasia 1+ (Not Present)
--- NOTE | 2016-11-25 07:03 | Electrocardiograph Report ---
[address] [place] [id number] Test Date: 2016-11-22 Pat Name: Tita Shabazz Department: 103 Room: 2N14 Gender: F Metal Painter: : 1930 Requested By: Anne-Marie Santoro Order Number: [id number] Reading MD: Destin Restrepo MD Measurements Intervals [place] Rate: 112 P: 47 CT: 129 QRS: 9 QRSD: 82 T: 138 QT: 298 QTc: 364 Interpretive Statements SINUS TACHYCARDIA Electronically Signed On 11-25-2016 7:01:51 EST by Destin Restrepo MD
[2016-11-25 07:30] VITALS: BP 134/68
[2016-11-25] MEDS: amLODIPine 5 MG TABLET PO SCH (07:38)
[2016-11-25] MEDS: Multivit/Ca/Min/Fe/FA 1 TAB TABLET PO SCH (07:38)
[2016-11-25] MEDS: Losartan/HCTZ 50-12.5 TABLET PO SCH (07:38)
[2016-11-25] MEDS: (Fish Oil 1,000 Mg Softgel) PO SCH (07:39)
[2016-11-25] MEDS: (Glucosamine Chondroit) PO SCH (07:39)
--- NOTE | 2016-11-25 09:01 | Oncology Inp Consult Note ---
Date of Encounter: 11/25/16 Time of Encounter: 09:00 Assessment and Plan (1) Colonic mass Status: Acute Assessment and plan: 86-year-old female with a transverse colon mass status post colonoscopy and biopsy off the transverse colon/proximal descending colon mass, final pathology is pending. His tiny lesions in the liver, lungs noted, further evaluate with CT scan of the chest with contrast as outpatient. Surgery has been consulted, and she had undergone colonoscopy- possible surgical intervention as an outpatient. Will review pathology and imaging results in our tumor board conference. The likelihood of malignancy with a colon mass and treatment for the same discussed with her briefly. Anemia symptomatic status post transfusions, oral iron, possible iron infusion prior to surgical procedure. She will return to my clinic if she is discharged home later this week. Baseline CEA is at 14 (11/2016) Plan of care discussed with patient and her in detail who stated understanding. - Data of Consult Requesting Physician: Anne-Marie Santoro MD Primary Care Provider: Frank Mcdonald MD - Consult Narrative Reason for consult: colon mass, anemia History of present illness: Ms. Shabazz is a 86 year old female with medical history significant for arthritis , hypertension, spinal stenosis, gastroesophageal reflex disease who was seen recently by Dr. Mcdonald due to increasing fatigue and shortness of breath. A CBC done showed a hemoglobin of 3.9 she was referred for hospitalization and further workup. She had felt weak and tired and short of breath. She had a colonoscopy several years ago in the past. There is no family history of colon cancer. Patient underwent transfusion support hemoglobin has improved to 10.2 she is clinically felt better. She had also undergone a colonoscopy and upper GI endoscopy. As He showed a partially obstructive growth likely in the descending colon which was biopsied, final pathology pending. CT scan of the abdomen and pelvis with contrast was performed that showed a large apple core mass lesion in the transverse colon, subcentimeter hypodensity in the liver too small to characterize, bilateral basal lung nodules, pleural effusion. Patient denies any cough with expectoration and weight loss abdominal pain. Past Med Surg Social Fam HX - Past Medical History Medical history: arthritis, hypertension Psychiatric history: no psych history - Past Surgical History Surgical History: appendectomy, cholecystectomy, thyroidectomy - Social History Smoking Status: Never smoker Smokeless Tobacco Status: No Alcohol use: none Drug use: none - Family History Father Hx Family Cardiac Disorders: Yes (hypertension) Hx Family Endocrine Disorder: Yes (diabetes) Medications and Allergies Acetaminophen w/Cod 300-30 mg [Tylenol w/Codeine #3] 1 each PO Q6H PRN 11/22/16 [History] Amlodipine Besylate 10 mg PO DAILY 11/22/16 [History] Aspirin Enteric Coated [Aspirin EC] 81 mg PO DAILY 11/22/16 [History] Calcium Carbonate/Vitamin D3 [Calcium 600 + Vit D Tablet] 1 each PO DAILY [History] Cyclosporine [Restasis Multidose] 1 drop OP HS 11/22/16 [History] Gluc Polanco/Chondro Polanco A/Vit C/Mn [Glucosamine Chondroitin Tab] 1 each PO DAILY 12/06 [History] LORazepam [Ativan] 1 mg PO HS 11/22/16 [History] Losartan/Hydrochlorothiazide [Hyzaar 100-25 Tablet] 1 each PO DAILY 11/22/16 [ History] Multivitamin [Multi-Day Vitamins] 1 each PO DAILY 11/22/16 [History] [place]-3/Dha/Epa/Fish Oil [Fish Oil 1,000 mg Softgel] 1,000 mg PO DAILY 11/22/16 [History] Omeprazole Magnesium [Prilosec Otc] 20 mg PO DAILY 11/22/16 [History] Potassium Chloride [Klor-Con 10] 20 meq PO DAILY 11/22/16 [History] Allergies No Known Allergies Allergy (Verified 06/03/16 13:32) Review of systems: 14 point ROS is otherwise negative Oncology - Exam - Constitutional Vitals: Temp Pulse Resp BP Pulse Ox 98.3 F 83 16 134/68 93 L 11/25/16 07:29 11/25/16 07:29 11/25/16 07:29 11/25/16 07:29 11/25/16 07:29 General appearance: average body habitus, no acute distress - Head Head exam: Present: atraumatic, normal inspection - Eye Eye exam: Present: sclera anicteric - ENT ENT exam: Present: mucous membranes moist - Neck Neck exam: Present: full ROM, normal inspection - Respiratory Respiratory exam: Present: CTAB - Cardiovascular Cardiovascular exam: Present: +S1, +S2 - GI/Abdominal GI/Abdominal exam: Present: normal bowel sounds, soft - Extremities Exam Extremities exam: Present: normal inspection - Neurological Exam Neurological exam: Present: alert, oriented X3, no focal deficits - Psychiatric Psychiatric exam: Present: normal mood - Skin Skin exam: Present: normal color, pallor Additional comments: without rashes Oncology - Results - Labs Labs: Short CBC 11/25/16 Range/Units 04:06 WBC 9.7 (4.3-11.1) K/mcL Hgb 10.2 L (11.5-15.4) g/dL Hct 35.4 (35.3-44.9) % Plt Count 294 (140-400) K/mcL Neutrophils # 6.2 (1.6-8.9) K/mcL BMP 11/24/16 11/25/16 05:39 03:33 Sodium 141 140 Potassium 3.6 3.6 Chloride 111 H 109 Carbon Dioxide 20 23 BUN 6 L 9 Creatinine 0.68 0.77 Glucose 91 89 Calcium 8.1 L 8.4 L - Imaging and Cardiology CT scan - abdomen Status: image reviewed by me Consult Discharge Plan - Plan Referrals: Frank Mcdonald MD [Primary Care Provider] -
--- NOTE | 2016-11-25 09:45 | Discharge Summary ---
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 (2) Anemia Priority: Primary Status: Acute Qualifiers: Anemia type: iron deficiency Iron deficiency anemia type: unspecified iron deficiency Qualified Code(s): D50.9 - Iron deficiency anemia, unspecified (3) GERD (gastroesophageal reflux disease) Priority: Secondary Status: Chronic Qualifiers: Esophagitis presence: esophagitis presence not specified Qualified Code(s) : K21.9 - Gastro-esophageal reflux disease without esophagitis (4) Hypertension Priority: Secondary Status: Chronic Qualifiers: Hypertension type: essential hypertension Qualified Code(s): I10 - Essential (primary) hypertension (5) Rectal bleeding Priority: Primary Status: Acute (6) DVT prophylaxis Priority: Secondary Status: Acute (7) Chronic back pain Priority: Secondary Status: Chronic Qualifiers: Back pain location: low back pain Back pain laterality: unspecified Sciatica presence: unspecified whether sciatica present Qualified Code(s): M54.5 - Low back pain; G89.29 - Other chronic pain - Discharge Medications Prescriptions: Ferrous Sulfate 325 mg PO DAILY #30 tablet Sennosides/Docusate Sodium [Senna Plus] 1 each PO BID PRN #30 tablet PRN Reason: Constipation Home Medications: Acetaminophen w/Cod 300-30 mg [Tylenol w/Codeine #3] 1 each PO Q6H PRN 11/22/16 [History] Amlodipine Besylate 10 mg PO DAILY 11/22/16 [History] Aspirin Enteric Coated [Aspirin EC] 81 mg PO DAILY 11/22/16 [History] Calcium Carbonate/Vitamin D3 [Calcium 600 + Vit D Tablet] 1 each PO DAILY [History] Cyclosporine [Restasis Multidose] 1 drop OP HS 11/22/16 [History] Gluc Polanco/Chondro Polanco A/Vit C/Mn [Glucosamine Chondroitin Tab] 1 each PO DAILY 12/06 [History] LORazepam [Ativan] 1 mg PO HS 11/22/16 [History] Losartan/Hydrochlorothiazide [Hyzaar 100-25 Tablet] 1 each PO DAILY 11/22/16 [ History] Multivitamin [Multi-Day Vitamins] 1 each PO DAILY 11/22/16 [History] [place]-3/Dha/Epa/Fish Oil [Fish Oil 1,000 mg Softgel] 1,000 mg PO DAILY 11/22/16 [History] Omeprazole Magnesium [Prilosec Otc] 20 mg PO DAILY 11/22/16 [History] Potassium Chloride [Klor-Con 10] 20 meq PO DAILY 11/22/16 [History] Ferrous Sulfate 325 mg PO DAILY #30 tablet 11/25/16 [Rx] Sennosides/Docusate Sodium [Senna Plus] 1 each PO BID PRN #30 tablet 11/25/16 [ Rx] Allergies/Adverse Reactions: Allergies No Known Allergies Allergy (Verified 06/03/16 13:32) Procedures/tests Complete & Pending: Procedures Performed prior 72 hours Category Date Time Status abdominal/pelvis CT with contrast [CT abd pelvis w iv Cat Scan 11/24/16 12:30 Completed and oral] [CT] Stat ECG 12 lead ECG [ECG] Routine Y 11/22/16 16:19 Completed Date of admission: 11/22/16 18:07 Primary care physician: Frank Mcdonald MD Consults: 11/22/16 22:53 Consult to Surgery [CONS] Routine Consulting Provider: [facility] Reason for Consult: Patient with hemoglobin of 3.7 on admission. She does take ASA. Reports minimal bright red blood per rectum. Stool hemocult positive. Consult for evaluation for possible endoscopy evaluatin. Call Completed: No 11/24/16 15:14 Consult to Oncology [CONS] Stat Consulting Provider: Oncology [facility] Reason for Consult: colon cancer Call Completed: Yes Discharging clinician: Anne-Marie Santoro Anticipated date of discharge: 11/25/16 - Patient Status Disposition: Home, Self-Care Condition: Good Functional capacity at discharge: independent ambulation Overall status at discharge: patient is back to baseline - Discharge Instructions Follow Up With: Frank Mcdonald MD [Primary Care Provider] - (SENT WEB REQUEST ON 11-25-16 @ [id number]) Additional Instructions: Please follow up with your primary care physician and Oncology (Dr. Kim) within five days after your discharge from the hospital. Ferrous sulfate has been added to your home medications due to your iron deficiency anemia. Ferrous sulfate can cause constipation, due to which you are given a prescription for Senna (stool softener) as needed for constipation. Please resume all your home medications as prescribed by your primary care physician. Please seek medical help if you experience rectal bleed, shortness of breath, or chest pain. - Diet and Activity Activity: resume usual activities as tolerated Diet: advance to your usual diet Hospital course: Ms. Shabazz is a 86 year old female with PMH of GERD, arthritis, HTN, spinal stenosis who was admitted for symptomatic anemia with concern for lower GI bleed. Patient received PRBC transfusions and underwent EGD/Colonoscopy performed by Dr. Salas. Colonoscopy revealed a transverse colon mass consistent with colon cancer. Oncology consultation was requested with Dr. Kim. Patient was seen by Dr. Kim and outpatient follow up is recommended. Patient's repeat H&H is within acceptable range and no active bleeding episodes have been reported since hospitalization. Patient was also noted to have iron deficiency anemia for which she was started on iron supplements. Patient is currently hemodynamically stable and will be discharged to home with follow up with PCP and Oncology. Patient is to continue all her home meds and iron supplements. Patient and (present at bedside) demonstrate understanding of the diagnosis and agree with the discharge care and plan. - Time Spent with Patient Total time spent providing and/or coordinating discharge services: Greater than 30 minutes - Constitutional Vitals: Temp Pulse Resp BP Pulse Ox 98.3 F 83 16 134/68 93 L 11/25/16 07:29 11/25/16 07:29 11/25/16 07:29 11/25/16 07:29 11/25/16 07:29 General appearance: Present: cooperative, A&O X 3, pleasant, no acute distress, obese, answers questions appropriately - Head Head exam: Present: atraumatic, normocephalic - Eye Eye exam: Present: PERRL, conjuntiva pink, sclera anicteric - Respiratory Respiratory exam: Present: CTAB. Absent: accessory muscle use, rales, rhonchi, wheezes - Cardiovascular Cardiovascular exam: Present: RRR, +S1, +S2. Absent: diastolic murmur, gallop, rubs, systolic murmur - GI/Abdominal GI/Abdominal exam: Present: normal bowel sounds, soft, no peritoneal signs. Absent: distended, tenderness - Extremities Exam Extremities exam: Present: warm, radial pulses palpable and symetrical. Absent : calf tenderness, cyanotic, pedal edema - Neurological Exam Neurological exam: Present: alert, oriented X3, no focal deficits. Absent: facial droop, speech deficit - Psychiatric Psychiatric exam: Present: normal affect, normal mood - VTE Documentation of Mechanical Device: Intermittent pneumatic compression device
== END 2016-11-25 11:38 | disposition home or self-care (01) | DRG 376 ==
LOC: EMEROO 16:11 → 2NNU 18:07
PROVIDERS: ADMIT Family Medicine; ATTEND Internal Medicine
PROC: ENDOEBX (~2016-11-22)
PROC: ENDOCBX (~2016-11-22)

== ENCOUNTER 2016-12-10 11:20 | Inpatient (IN) ==
--- NOTE | 2016-12-10 12:32 | History & Physical Report ---
Date of Encounter: 12/10/16 Time of Encounter: 12:31 24 Hour HP Update - Instructions Instructions: If the History and Physical is less than 30 days old and was completed prior to A.M. admission and or procedure and has NOT been updated on calendar day of procedure please complete this update prior to performing procedure. - Update Patient reports changes in Medical Condition: No Changes in assessment/condition: No Changes in Medication: No Preop tests/diagnostics Reviewed: Yes Pre-Op MRSA Screen: Negative Surgery Remains Indicated: Yes Consent for Planned Operative Procedure(s) Verified: Yes - Pre-Operative Checklist Preoperative Checklist Indicated: No Prophylactic Antibiotic Ordered: Yes Home Medications Include Beta Shilpa: No Beta Shilpa Taken Today (Day of Surgery): No Beta Shilpa Taken Yesterday (Day Prior to Surgery): No Is VTE Prophylaxis Indicated?: NO
--- NOTE | 2016-12-10 12:52 | Anesthesia Evaluation PreOp ---
Date of Encounter: 12/10/16 Time of Encounter: 13:00 - Past History Planned Operation: Robotic Transverse Colon Resection Cardiac History: HTN Pulmonary History: Denies Any Significant HX INVESTOR RELATIONS COORDINATOR History: Denies Any Significant HX Other Medical History: Denies Any Significant HX Anesthesia History: No Prior Anesthetic Complications : No Alcohol Use: none Drug use: none Medications and Allergies Acetaminophen w/Cod 300-30 mg [Tylenol w/Codeine #3] 1 each PO Q6H PRN 11/22/16 [History] Amlodipine Besylate 10 mg PO DAILY 11/22/16 [History] Aspirin Enteric Coated [Aspirin EC] 81 mg PO DAILY 11/22/16 [History] Calcium Carbonate/Vitamin D3 [Calcium 600 + Vit D Tablet] 1 each PO DAILY [History] Cyclosporine [Restasis Multidose] 1 drop OP HS 11/22/16 [History] Gluc Polanco/Chondro Polanco A/Vit C/Mn [Glucosamine Chondroitin Tab] 1 each PO DAILY 12/06 [History] LORazepam [Ativan] 1 mg PO HS 11/22/16 [History] Losartan/Hydrochlorothiazide [Hyzaar 100-25 Tablet] 1 each PO DAILY 11/22/16 [ History] Multivitamin [Multi-Day Vitamins] 1 each PO DAILY 11/22/16 [History] [place]-3/Dha/Epa/Fish Oil [Fish Oil 1,000 mg Softgel] 1,000 mg PO DAILY 11/22/16 [History] Omeprazole Magnesium [Prilosec Otc] 20 mg PO DAILY 11/22/16 [History] Potassium Chloride [Klor-Con 10] 20 meq PO DAILY 11/22/16 [History] Acetaminophen w/Cod 300-30 mg [Tylenol w/Codeine #3] 1 each PO Q6HR PRN #10 tablet 11/25/16 [Rx] Ferrous Sulfate 325 mg PO DAILY #30 tablet 11/25/16 [Rx] Sennosides/Docusate Sodium [Senna Plus] 1 each PO BID PRN #30 tablet 11/25/16 [ Rx] Allergies No Known Allergies Allergy (Verified 06/03/16 13:32) - Meds/Allergy Pre-op Review Medications Reviewed: Yes Allergies Reviewed: Yes Beta Blockers on Current Med List: No Anesthesia Results - Labs Laboratory Tests 03/06/17 03/10/17 03:33 15:55 Hgb 11.2 L Hct 38.1 Plt Count 235 Sodium 140 Potassium 3.6 BUN 9 Creatinine 0.77 - Imaging EKG: report reviewed (Sinus Tach) Additional studies: EF 60% from 2013 ECHO Anesthesia Exam O2 Sat Height 1.6 m Height 1.6 m Weight 68.492 kg Weight 68.492 kg O2 Sat by Pulse Oximetry 98 Vital Signs Temp Pulse Resp BP Pulse Ox 99.1 F 109 18 125/67 98 12/10/16 12:24 12/10/16 12:24 12/10/16 12:24 12/10/16 12:24 12/10/16 12:24 Height: 5'3 Weight: 151 lbs NPO (# of Hours): MN Pain Scale: 0 - HEENT Pupil (Motor): Pupils equal, EOMI Mallampati: II Teeth: Normal Oral Opening: Less than or equal to 3 (Minimal neck extension) - INVESTOR RELATIONS COORDINATOR LOC: Oriented INVESTOR RELATIONS COORDINATOR Motor: Normal RUE, Normal LUE, Normal RLE, Normal LLE, Normal Face INVESTOR RELATIONS COORDINATOR Sensory: Normal: RUE, LUE, RLE, LLE, Face - Cardiac Rhythm: Regular Murmur: None JVD: No Carotid Bruit: No - Pulmonary Breath Sounds: bilateral Clear Respiratory Effort: Symmetrical Anesthesia Assess/Plan ASA Score: 2 Modified Lora Scale for Level of Consciousness: Cooperative, oriented, and tranquil Anesthetic Plan: General Monitoring Plan: Standard Monitors Recovery Plan: PACU (Discussed GA, agrees to proceed)
[2016-12-10] MEDS ORDERED: Ondansetron 4 MG/2 ML VIAL ONE (13:14)
[2016-12-10] MEDS ORDERED: Dexamethasone 4 MG/ML VIAL ONE (13:14)
[2016-12-10] MEDS ORDERED: *HR* FentaNYL (PF) 100 MCG/2 ML VIAL ONE ×2 (13:14→14:54)
[2016-12-10] MEDS ORDERED: Lidocaine -MPF 2% 2 ML VIAL ONE (13:14)
[2016-12-10] MEDS ORDERED: *HR* Rocuronium Bromide 50 MG/5 ML VIAL ONE (13:14)
[2016-12-10] MEDS ORDERED: *HR* Propofol 200 MG/20 ML VIAL IVP ONE (13:14)
[2016-12-10] MEDS ORDERED: cefOXitin 2,000 MG in D5% in Water (Mini-Bag+) 100 ML IVPB ONE (13:19)
[2016-12-10] MEDS ORDERED: Famotidine 20 MG/2 ML VIAL IVP ONE (13:20)
[2016-12-10] MEDS ORDERED: Neostigmine Methylsulfate 3 MG/3 ML SYRINGE ONE (13:38)
[2016-12-10] MEDS: Ringers Solution, Lactated 1,000 ML IVC SCH ×2 (13:43→19:22)
[2016-12-10] MEDS ORDERED: *HR* Morphine 10 MG/ML VIAL ONE ×2 (14:43→16:27)
[2016-12-10] MEDS ORDERED: Naloxone 0.4 MG/ML INJ IVP PRN ×2 (15:05→20:37)
[2016-12-10] MEDS ORDERED: Ondansetron 4 MG/2 ML VIAL IVP ONE (15:05)
[2016-12-10] MEDS ORDERED: Dexamethasone 4 MG/ML VIAL IVP ONE (15:05)
[2016-12-10] MEDS ORDERED: *HR* Labetalol 100 MG/20 ML MDV IVP PRN (15:05)
[2016-12-10] MEDS ORDERED: *HR* HYDROmorphone (PF) 1 MG/ML SYRINGE IVP PRN (15:05)
[2016-12-10] MEDS ORDERED: CefOXitin 2,000 MG VIAL IVPB ONE (16:35)
--- NOTE | 2016-12-10 19:08 | Operative Note ---
Date of procedure: 12/10/16 Pre-op diagnosis: Transverse colon cancer Post-op diagnosis: same Procedure: 1. Robot assisted laparoscopic lysis of adhesions (45min). 2. Robot assisted transverse colectomy. Anesthesia: CARLOS ALBERTOA Surgeon: Teofilo Salas Boring Machine Operator: Amina Stokes Boring Machine Operator Other: LEESA Hubbard Specimen: transverse colon Condition: stable Disposition: PACU Procedure in Detail: Date of surgery: 12/10/16 After properly identifying the patient, the patient brought to the operating room and placed in the supine position. Appropriate IV sedation is achieved followed by general endotracheal intubation, the abdomen was prepped and draped in normal sterile fashion. Timeout was performed noting the patient's name and procedure to be performed. A subumbilical incision with a 15 blade scalpel was made down to the level of the rectus fascia. The rectus fascia was incised and the abdomen was entered and a 12 mm port was placed to the incision. Laparoscopic camera was placed to the port which showed no injury to the intra- abdominal organs upon entry. The abdomen was insufflated with carbon dioxide and a right lower quadrant and left lower quadrant 8 mm port were then placed under direct camera visualization. An additional left upper quadrant 8 mm port along the anterior axillary line just below the costal margin was placed under direct camera visualization. The patient was placed in the reverse Trendelenburg position and the da Sabine robot was brought towards the operative field and docked appropriately. The patient had a right paramedian incision and there were noted significant omental adhesions in the right upper quadrant. Laparoscopic bovie cauterization and sharp dissection were used to help take down these adhesions along the right upper quadrant extending down to the right lower quadrant. There were also adhesions from the liver to the abdominal wall which were taken down with Bovie cauterization and sharp dissection. There were further adhesions in the right upper quadrant from the patient's previous cholecystectomy extending down to the right lower quadrant where the patient had a previous appendectomy. The right lateral adhesions were taken down with Bovie cauterization. Additionally, the adhesions to the liver were considerable due to the previous surgical procedure and were taken down with blunt dissection and sharp dissection. The transverse colon was then examined which demonstrated the large carcinoma with blue tattooing noted. This was lifted anteriorly to allow for visualization of the mesentery at its origin. This was scored with Bovie cauterization and dissection was carried through into the middle colic vessels were identified and transected with a laparoscopic vessel sealer. The dissection was carried continuously through the mesentery until the duodenum was encountered. The mesenteric dissection was continued laterally to the right and left with Bovie cauterization. The approximate time for the lysis of adhesion was 45 minutes. The left lateral colonic sidewall attachments were taken down with Bovie cauterization and blunt dissection. The splenic flexure was dissected free in a similar fashion. The omentum was dissected away from the splenic flexure as well. Portions of the omentum near the transverse colon were left covering the transverse colon and cancer with the laparoscopic vessel sealer. The remnant of the omentum was left as part of the specimen from this portion towards the hepatic flexure. The decision was then made to transect the distal transverse colon near the splenic flexure to allow for maintain proper blood supply to the left colonic stump. The robotic stapler was then brought onto the operative field and used to transect across the colon at this level. The mesentery was then transected and divided with a laparoscopic vessel sealer down towards the mesentery and origin of the middle colic vessel which was already transected. The decision was then made to go ahead and convert this to the open procedure. A 15 blade scalpel was used to make an incision along the midline several centimeters from the xiphoid process to above the level of the umbilicus for length of approximately 10 cm. Bovie cauterization was used to dissect through the subcutaneous tissue and abdominis fascia into the abdomen was entered. A skin protector or Phil was brought onto the operative field and placed to protect the subcutaneous tissue. Once this was performed the transverse colon was extruded through the opening along with the mesentery and omental covering. The decision was then made to transect the colon near the hepatic flexure with a SID stapler. The remaining mesenteric remnant was transected with a hand -held LigaSure. This specimen was then removed from the abdomen and submitted to pathology. The decision was then made to perform a side to side anastomosis using a SID stapler and a 60 TA stapler to close the enterotomy. The enterotomy was imbricated with a running 3-0 silk suture. The right upper quadrant was briefly irrigated with normal saline solution and hemostasis was noted to be maintained. Seprafilm was placed within the abdomen and the skin protection device was then removed without difficulty. The abdominal wall fascia was closed with non-looped #1 PDS sutures starting from the superior and inferior aspect and tied at the midline. Subcutaneous tissue was reapproximated with 2-0 Vicryl sutures in the epidermal and dermal layers were reapproximated with sintia. The subumbilical incision was closed by reapproximating the fascia with an 0 Vicryl suture in a [id number] fashion. The subcutaneous tissue was reapproximated with 3-0 Vicryl sutures and the epidermal and dermal layers were reapproximated with a 4-0 Monocryl suture. The epidermal and dermal layers for the remaining incisions were closed with sintia. Needle, sponge, and instrument counts were correct 2 and the incisions were covered with 2 x 2's and 4 x 4's. The patient was aroused from IV sedation, extubated in the operating room without complication, and transported to the recovery room in stable condition.
[2016-12-10] MEDS: *HR* Morphine 2 MG/ML SYRINGE IVP PRN ×2 (19:51→20:03)
--- NOTE | 2016-12-10 20:25 | Anesthesia Evaluation Post Op ---
Date of Encounter: 12/10/16 Time of Encounter: 20:24 - Vital Signs Vital Signs: Vital Signs/O2 Sat, Most Current Temp Pulse Resp BP Pulse Ox 98.6 F 93 16 135/80 98 12/10/16 20:13 12/10/16 20:13 12/10/16 20:13 12/10/16 20:13 12/10/16 20:13 - Lungs Lungs: Clear Ascult./Percussion - Airway Airway: Non-obstructed - Cardiovascular Regular Rate - Mental Status Mental Status: Asleep with brisk response to light stimulation - Pain Pain Scale: 4 Pain Scale used: Numeric (1 - 10) - Nausea Vomiting Nausea Vomiting: Not Present - Hydration Hydration: Ice chips, Mercado catheter - Discharge PostOp Status: Transfer Patient to floor
[2016-12-11] MEDS: 0.9 % Sodium Chloride 1,000 ML IVC SCH ×4 (00:14→23:32)
[2016-12-11] MEDS: cefOXitin 1,000 MG in D5% in Water (Mini-Bag+) 100 ML IVPB SCH ×3 (00:14→16:34)
[2016-12-11 06:53] LABS: Immature Granulocytes % 0.4 % (0-4); Red Cell Distribution Width 29.8 % (11.5-14.5)
[2016-12-11 06:55] LABS: Basophils % 0.2 %; Hematocrit 31.4 % (35.3-44.9); Hemoglobin 9.5 g/dL (11.5-15.4); Lymphocytes # 1.5 K/mcL (0.6-4.6); Lymphocytes % 10.8 %; Mean Corpuscular HGB Conc 30.3 g/dL (31.6-35.5); Mean Corpuscular Hemoglobin 22.5 pg (28.0-33.3); Mean Corpuscular Volume 74.4 fL (83.0-100.0); Mean Platelet Volume 10.2 fL (9.4-12.4); Monocytes # 1.3 K/mcL (0.0-1.3); Monocytes % 9.5 %; Neutrophils # 11.1 K/mcL (1.6-8.9); Platelet Count 396 K/mcL (140-400); Red Blood Count 4.22 M/mcL (3.82-4.97); Segmented Neutrophils % 79.1 %
[2016-12-11 07:06] LABS: BUN/Creatinine Ratio 19 (6-26); Blood Urea Nitrogen 14 mg/dL (7-20); Carbon Dioxide 24 mEq/L (19-29); Chloride 108 mEq/L (98-109); Glucose 135 mg/dL (70-99); Osmolality,Calculated 293 (280-300); Potassium 3.3 mEq/L (3.5-4.5); Sodium 140 mEq/L (136-145); eGFR For African Americans > 60 (> 60); eGFR For Non-African Americans > 60 (> 60)
[2016-12-11 07:17] LABS: Calcium 8.4 mg/dL (8.6-10.8)
[2016-12-11] MEDS ORDERED: Potassium Chloride Elixir 20 MEQ/15 ML UDC PO ONE (07:30)
[2016-12-11] MEDS: Pantoprazole 40 MG VIAL IVP SCH (07:54)
[2016-12-11] MEDS: *HR* HYDROmorphone (PF) 1 MG/ML SYRINGE IVP PRN ×6 (08:16→23:34)
--- NOTE | 2016-12-11 11:38 | General Surgery Progress Note ---
Date of Encounter: 12/11/16 Time of Encounter: 11:30 - Assessment and Plan (1) Colon cancer Current Visit: No Status: Acute POD #1 Robot assisted laparoscopic lysis of adhesions (45min), Robot assisted transverse colectomy with Dr. 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 (2) Hypertension Current Visit: No Status: Chronic Normotensive Continue to monitor and adjust medications as necessary May resume home regimen Qualifiers: Hypertension type: essential hypertension Qualified Code(s): I10 - Essential (primary) hypertension (3) GERD (gastroesophageal reflux disease) Current Visit: No Status: Chronic PPI therapy daily Qualifiers: Esophagitis presence: esophagitis presence not specified Qualified Code(s) : K21.9 - Gastro-esophageal reflux disease without esophagitis (4) Hypokalemia Current Visit: Yes Status: Acute Replace potassium Repeat am labs (5) DVT prophylaxis Current Visit: No Status: Acute Continue heparin 5,000 units SQ twice daily for DVT prophylaxis Subjective Patient reports: still having pain (surgical discomfort), tolerating liquids well, flatus (this morning), bowel movement, diarrhea (this morning), afebrile, other (Patient out of bed this morning) Objective Vital Signs - Last 8 Hours Temp Pulse Resp BP Pulse Ox 12/11/16 08:41 98 F 100 16 130/73 99 12/11/16 05:00 97.6 F 104 14 109/71 98 Intake and Output 12/10/16 12/11/16 12/11/16 23:59 07:59 15:59 Intake Total 975 / 975 100 / 100 Output Total 225 / 225 350 / 350 350 / 350 Balance 750 / 750 -250 / -250 -350 / -350 Intake: IV Fluids 975 / 975 100 / 100 Lactated Ringers 1,000 ML 975 / 975 @ 25 mls/hr IVC .Q24H [facility] Rx#:[id number] Mefoxin 1,000 MG In 100 / 100 Dextrose 5% (Minibag+) 100 ML 100 ML @ 200 mls/ hr IVPB Q8HR [facility] Rx#: [id number] Oral 0 / 0 Output: Estimated Blood Loss 75 / 75 Urine Amount (Catheter) 150 / 150 Catheter 350 / 350 350 / 350 Other: Meal NPO - General physical appearance well developed, well nourished, no distress - Eyes normal ocular movement - ENT normal mucosa, atraumatic, normocephalic - Neck Neck exam: trachea midline - Respiratory normal respiratory effort, clear to auscultation - Cardiovascular Cardiovascular exam: Present: RRR - Abdomen Abdomen: Present: bowel sounds present (minimal, hypoactive), soft, tender ( expected post-operative tenderness) - Incision Incision: Present: clean and dry, intact - Neurologic CN 2-12 grossly intact - Psychiatric oriented to time, oriented to person, oriented to place, speech is normal, memory intact - Labs 12/12/16 04:30 12/12/16 04:30 Diabetes panel 12/11/16 Range/Units 06:23 Sodium 140 (136-145) mEq/L Potassium 3.3 L (3.5-4.5) mEq/L Chloride 108 (98-109) mEq/L Carbon Dioxide 24 (19-29) mEq/L BUN 14 (7-20) mg/dL Creatinine 0.73 (0.57-1.11) mg/dL Glucose 135 H (70-99) mg/dL Calcium 8.4 L (8.6-10.8) mg/dL Calcium panel 12/11/16 Range/Units 06:23 Calcium 8.4 L (8.6-10.8) mg/dL Pituitary panel 12/11/16 Range/Units 06:23 Sodium 140 (136-145) mEq/L Potassium 3.3 L (3.5-4.5) mEq/L Chloride 108 (98-109) mEq/L Carbon Dioxide 24 (19-29) mEq/L BUN 14 (7-20) mg/dL Creatinine 0.73 (0.57-1.11) mg/dL Glucose 135 H (70-99) mg/dL Calcium 8.4 L (8.6-10.8) mg/dL Adrenal panel 12/11/16 Range/Units 06:23 Sodium 140 (136-145) mEq/L Potassium 3.3 L (3.5-4.5) mEq/L Chloride 108 (98-109) mEq/L Carbon Dioxide 24 (19-29) mEq/L BUN 14 (7-20) mg/dL Creatinine 0.73 (0.57-1.11) mg/dL Glucose 135 H (70-99) mg/dL Calcium 8.4 L (8.6-10.8) mg/dL - VTE Documentation of Mechanical Device: Intermittent pneumatic compression device Consult Discharge Plan - Plan Referrals: Teofilo Salas MD [Partnered Physician] - 12/26/16 2:35 pm Frank Mcdonald MD [Primary Care Provider] - - Attending Attestation I examined this patient and my medical decision-making was reviewed with the CORRECTION OFFICER/PA/Advanced Practice Nurse/Resident Physician. I agree with the documented findings, disposition and treatment plan as described except to the extent set forth below. Noted the above physical exam and assessment and I agree with the above plan. Clears for now. Hypokalemia treated with K-elixir. Follow CBC and BMP.
[2016-12-11] MEDS: *HR* Heparin 5,000 UNIT/ML VIAL SQ SCH (18:46)
[2016-12-12] MEDS: *HR* HYDROmorphone (PF) 1 MG/ML SYRINGE IVP PRN ×3 (04:11→13:47)
[2016-12-12 05:23] LABS: BUN/Creatinine Ratio 14 (6-26); Blood Urea Nitrogen 9 mg/dL (7-20); Calcium 8.1 mg/dL (8.6-10.8); Carbon Dioxide 20 mEq/L (19-29); Chloride 107 mEq/L (98-109); Glucose 151 mg/dL (70-99); Osmolality,Calculated 290 (280-300); Potassium 3.4 mEq/L (3.5-4.5); Sodium 139 mEq/L (136-145); eGFR For African Americans > 60 (> 60); eGFR For Non-African Americans > 60 (> 60)
[2016-12-12 05:25] LABS: Basophils % 0.2 %; Mean Platelet Volume 10.2 fL (9.4-12.4)
[2016-12-12 05:26] LABS: Hematocrit 34.5 % (35.3-44.9); Hemoglobin 10.3 g/dL (11.5-15.4); Immature Granulocytes % 0.7 % (0-4); Lymphocytes # 1.3 K/mcL (0.6-4.6); Lymphocytes % 5.4 %; Mean Corpuscular HGB Conc 29.9 g/dL (31.6-35.5); Mean Corpuscular Hemoglobin 22.9 pg (28.0-33.3); Mean Corpuscular Volume 76.8 fL (83.0-100.0); Monocytes # 1.8 K/mcL (0.0-1.3); Monocytes % 7.4 %; Neutrophils # 20.5 K/mcL (1.6-8.9); Platelet Count 370 K/mcL (140-400); Red Blood Count 4.49 M/mcL (3.82-4.97); Red Cell Distribution Width 30.3 % (11.5-14.5); Segmented Neutrophils % 86.3 %
[2016-12-12 05:28] LABS: Basophils # 0.1 K/mcL (0.0-0.2)
[2016-12-12 06:01] LABS: Hypochromasia Present (Not Present)
[2016-12-12 06:02] LABS: Anisocytosis 2+ (Not Present); Platelet Estimate Normal (Normal)
[2016-12-12] MEDS: *HR* Heparin 5,000 UNIT/ML VIAL SQ SCH (06:21)
[2016-12-12] MEDS: Pantoprazole 40 MG VIAL IVP SCH (07:43)
[2016-12-12] MEDS ORDERED: Potassium Chloride Elixir 20 MEQ/15 ML UDC PO ONE (09:18)
[2016-12-12] MEDS: 0.9 % Sodium Chloride 1,000 ML IVC SCH (10:44)
[2016-12-12 12:32] LABS: Bilirubin,Urine Negative (Negative); Blood,Urine Negative (Negative); Clarity,Urine Cloudy (Clear); Color,Urine Yellow (Yellow); Glucose,Urine (UA) 250 mg/dL (Normal); Ketones,Urine Negative (Negative); Leukocyte Esterase,Urine Small (Negative); Nitrite,Urine Negative (Negative); Protein,Urine 30 mg/dL (Neg-Trace); Specific Gravity,Urine 1.028 (1.010-1.025); Urobilinogen,Urine Normal (Normal)
[2016-12-12 12:35] LABS: Bacteria,Urine None Seen per hpf (None-Few); Hyaline Casts,Urine None Seen per lpf (None-Few); Squamous Epithelial Cell,Urine Many per lpf (None-Few)
--- NOTE | 2016-12-12 13:16 | General Surgery Progress Note ---
Date of Encounter: 12/12/16 Time of Encounter: 13:00 - Assessment and Plan (1) Colon cancer Current Visit: No Status: Acute POD #2 Robot assisted laparoscopic lysis of adhesions (45min), Robot assisted transverse colectomy with Dr. 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 (2) Hypertension Current Visit: No Status: Chronic Normotensive Continue to monitor and adjust medications as necessary May resume home regimen Qualifiers: Hypertension type: essential hypertension Qualified Code(s): I10 - Essential (primary) hypertension (3) GERD (gastroesophageal reflux disease) Current Visit: No Status: Chronic PPI therapy daily Qualifiers: Esophagitis presence: esophagitis presence not specified Qualified Code(s) : K21.9 - Gastro-esophageal reflux disease without esophagitis (4) Hypokalemia Current Visit: Yes Status: Acute Replace potassium Repeat am labs (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 CT scan of abdomen/pelvis shows evidence of thrombus in the SMV- patient and family notitfied Start low dose heparin gtt without bolus now (6) Leukocytosis Current Visit: Yes Status: Acute CT scan of abdomen/pelvis shows evidence of thrombus in the SMV- patient and family notitfied Start low dose heparin gtt without bolus now Empiric antibiotics started- Cipro and Flagyl Repeat am labs Qualifiers: Leukocytosis type: unspecified Qualified Code(s): D72.829 - Elevated white blood cell count, unspecified (7) DVT prophylaxis Current Visit: No Status: Acute Heparin gtt started for SMV thrombus Subjective Patient reports: no new complaints, still having pain, tolerating liquids well, voiding w/o difficulty, flatus, bowel movement, diarrhea, afebrile, other ( Tachycardia noted) Objective Vital Signs - Last 8 Hours Temp Pulse Resp BP Pulse Ox 12/12/16 11:15 98.4 F 119 18 148/68 95 12/12/16 09:29 98.6 F 126 20 168/69 95 12/12/16 07:24 98.0 F 117 18 137/64 97 Intake and Output 12/11/16 12/12/16 12/12/16 23:59 07:59 15:59 Intake Total 1000 / 1000 1115 / 1115 310 / 310 Output Total 200 / 200 700 / 700 300 / 300 Balance 800 / 800 415 / 415 10 / 10 Intake: IV Fluids 1000 / 1000 690 / 690 310 / 310 0.9 % Sodium Chloride 1, 1000 / 1000 690 / 690 310 / 310 000 ML @ 100 mls/hr IVC . Q10H [facility] Rx#:[id number] Oral 425 / 425 Output: Urine 300 / 300 Stool 400 / 400 Urine/Stool Mix 200 / 200 300 / 300 Other: Stool Size Small Smear Stool Consistency liquid soft Stool Characteristics Mucoid Stool Color Brown Brown Green # Bowel Movements 0 Weight 69.853 kg Patient Weight 12/12/16 23:59 Weight 69.853 kg - General physical appearance well developed, well nourished, no distress - Eyes normal ocular movement - ENT normal mucosa, atraumatic, normocephalic - Neck Neck exam: trachea midline - Respiratory normal respiratory effort, clear to auscultation - Cardiovascular Cardiovascular exam: Present: tachycardia - Abdomen Abdomen: Present: bowel sounds present, soft, tender (expected post-operative tenderness) - Incision Incision: Present: clean and dry, intact - Integumentary no rash, no growths, no abnormal pigmentation - Neurologic CN 2-12 grossly intact - Psychiatric oriented to time, oriented to person, oriented to place, speech is normal, memory intact - Labs 12/13/16 03:42 12/13/16 12:07 Diabetes panel 12/12/16 Range/Units 04:30 Sodium 139 (136-145) mEq/L Potassium 3.4 L (3.5-4.5) mEq/L Chloride 107 (98-109) mEq/L Carbon Dioxide 20 (19-29) mEq/L BUN 9 (7-20) mg/dL Creatinine 0.65 (0.57-1.11) mg/dL Glucose 151 H (70-99) mg/dL Calcium 8.1 L (8.6-10.8) mg/dL Calcium panel 12/12/16 Range/Units 04:30 Calcium 8.1 L (8.6-10.8) mg/dL Pituitary panel 12/12/16 Range/Units 04:30 Sodium 139 (136-145) mEq/L Potassium 3.4 L (3.5-4.5) mEq/L Chloride 107 (98-109) mEq/L Carbon Dioxide 20 (19-29) mEq/L BUN 9 (7-20) mg/dL Creatinine 0.65 (0.57-1.11) mg/dL Glucose 151 H (70-99) mg/dL Calcium 8.1 L (8.6-10.8) mg/dL Adrenal panel 12/12/16 Range/Units 04:30 Sodium 139 (136-145) mEq/L Potassium 3.4 L (3.5-4.5) mEq/L Chloride 107 (98-109) mEq/L Carbon Dioxide 20 (19-29) mEq/L BUN 9 (7-20) mg/dL Creatinine 0.65 (0.57-1.11) mg/dL Glucose 151 H (70-99) mg/dL Calcium 8.1 L (8.6-10.8) mg/dL - Imaging CT scan - abdomen: report reviewed CT scan - pelvis: report reviewed Additional Studies: Abdomen/Pelvis CT 12/12/16 11:20 IMPRESSION: 1. 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 There are associated inflammatory changes noted in the mesenty as well as thickening of the small bowel loops in the abdomen. 2. Interval right hemicolectomy. There is no focal fluid collection near the anastomotic site or leak or extravasation of contrast. 3. Pneumoperitoneum, likely related to recent surgery. 4. Colonic diverticula. 5. Smaller bilateral pleural effusions with residual areas of atelectasis in the lung bases. D/ / 12/12/2016 13:12:31 Vasile Martinez MD / bcarter Interpreting Provider: Vasile Martinez MD - VTE Documentation of Mechanical Device: Intermittent pneumatic compression device Consult Discharge Plan - Plan Referrals: Teofilo Salas MD [Partnered Physician] - 12/26/16 2:35 pm Frank Mcdonald MD [Primary Care Provider] - - Attending Attestation I examined this patient and my medical decision-making was reviewed with the PROGRAM DIRECTOR SCOUTING/PA/Advanced Practice Nurse/Resident Physician. I agree with the documented findings, disposition and treatment plan as described except to the extent set forth below. Patient with noted upper abdominal pain. Incision CDI. Noted rise in WBC. Urine cultures and blood cultures obtained. CT scan performed which demonstrates an SMV thrombus. Cdiff cultures negative. Heparin IV started as well antibiotics. Follow WBC. Continue to advance diet as tolerated
[2016-12-12] MEDS: Losartan/HCTZ 50-12.5 TABLET PO SCH (13:53)
[2016-12-12] MEDS: amLODIPine 5 MG TABLET PO SCH (13:53)
[2016-12-12] MEDS: Ondansetron 4 MG/2 ML VIAL IVP PRN (13:53)
[2016-12-12] MEDS: Aspirin Enteric Coated 81 MG Tablet PO SCH (13:53)
[2016-12-12] MEDS: Heparin 25,000 UNIT/500 ML D5W 25,000 UNIT/500 ML MLS IVC SCH (14:53)
[2016-12-12] MEDS ORDERED: Acetaminophen 325 MG TABLET PO PRN (17:30)
[2016-12-12] MEDS: MetroNIDAZOLE 500 MG/100 ML 500 MG/100 ML BAG IVPB SCH (18:29)
[2016-12-13] MEDS: *HR* HYDROmorphone (PF) 1 MG/ML SYRINGE IVP PRN ×4 (00:24→17:55)
[2016-12-13] MEDS: 0.9 % Sodium Chloride 1,000 ML IVC SCH ×2 (00:26→14:18)
[2016-12-13] MEDS: MetroNIDAZOLE 500 MG/100 ML 500 MG/100 ML BAG IVPB SCH ×3 (01:41→17:54)
[2016-12-13 03:57] LABS: Mean Corpuscular Volume 73.9 fL (83.0-100.0); Mean Platelet Volume 9.8 fL (9.4-12.4)
[2016-12-13 03:59] LABS: Hematocrit 28.3 % (35.3-44.9); Hemoglobin 8.6 g/dL (11.5-15.4); Immature Platelets 3.8 % (1.1-6.1); Mean Corpuscular HGB Conc 30.4 g/dL (31.6-35.5); Mean Corpuscular Hemoglobin 22.5 pg (28.0-33.3); Platelet Count 303 K/mcL (140-400); Red Blood Count 3.83 M/mcL (3.82-4.97); Red Cell Distribution Width 29.3 % (11.5-14.5)
[2016-12-13 04:14] LABS: BUN/Creatinine Ratio 9 (6-26); Calcium 8.2 mg/dL (8.6-10.8); Carbon Dioxide 25 mEq/L (19-29); Chloride 106 mEq/L (98-109); Glucose 165 mg/dL (70-99); Osmolality,Calculated 287 (280-300); Sodium 138 mEq/L (136-145); eGFR For African Americans > 60 (> 60); eGFR For Non-African Americans > 60 (> 60)
[2016-12-13 04:25] LABS: Blood Urea Nitrogen 5 mg/dL (7-20)
[2016-12-13 04:27] LABS: Potassium 2.2 mEq/L (3.5-4.5)
[2016-12-13 04:53] LABS: Anisocytosis 3+ (Not Present); Hypochromasia Present (Not Present); Lymphocytes # 0.9 K/mcL (0.6-4.6); Microcytosis Present (Not Present); Neutrophils # 20.7 K/mcL (1.6-8.9); Platelet Estimate Normal (Normal)
[2016-12-13 04:54] LABS: Polychromasia 1+ (Not Present); Reactive Lymphocytes Present (Not Present)
[2016-12-13] MEDS: Ondansetron 4 MG/2 ML VIAL IVP PRN ×2 (05:45→12:47)
[2016-12-13] MEDS: Losartan/HCTZ 50-12.5 TABLET PO SCH (11:08)
[2016-12-13] MEDS: amLODIPine 5 MG TABLET PO SCH (11:08)
[2016-12-13] MEDS: Pantoprazole 40 MG VIAL IVP SCH (11:08)
[2016-12-13] MEDS: Aspirin Enteric Coated 81 MG Tablet PO SCH (11:08)
--- NOTE | 2016-12-13 11:12 | General Surgery Progress Note ---
Date of Encounter: 12/13/16 Time of Encounter: 11:00 - Assessment and Plan (1) Colon cancer Current Visit: No Status: Acute POD #3 Robot assisted laparoscopic lysis of adhesions (45min), Robot assisted transverse colectomy with Dr. 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 (2) Hypertension Current Visit: No Status: Chronic Normotensive Continue to monitor and adjust medications as necessary May resume home regimen Qualifiers: Hypertension type: essential hypertension Qualified Code(s): I10 - Essential (primary) hypertension (3) GERD (gastroesophageal reflux disease) Current Visit: No Status: Chronic PPI therapy daily Qualifiers: Esophagitis presence: esophagitis presence not specified Qualified Code(s) : K21.9 - Gastro-esophageal reflux disease without esophagitis (4) Hypokalemia Current Visit: Yes Status: Acute Replace potassium- 80 meq IV and 40 meq PO Repeat potassium level at 1200 Repeat am labs (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 CT scan of abdomen/pelvis shows evidence of thrombus in the SMV- patient and family notitfied Continue low dose heparin gtt without bolus (6) Leukocytosis Current Visit: Yes Status: Acute Improving CT scan of abdomen/pelvis shows evidence of thrombus in the SMV- patient and family notitfied Continue low dose heparin gtt without bolus Empiric antibiotics started- Cipro and Flagyl Repeat am labs Qualifiers: Leukocytosis type: unspecified Qualified Code(s): D72.829 - Elevated white blood cell count, unspecified (7) DVT prophylaxis Current Visit: No Status: Acute Heparin gtt started for SMV thrombus Subjective Patient reports: no new complaints, feels better, still having pain, pain is less, tolerating liquids well, voiding w/o difficulty, bowel movement, diarrhea , afebrile Objective Vital Signs - Last 8 Hours Temp Pulse Resp BP Pulse Ox 12/13/16 08:40 98.3 F 102 17 131/68 94 L 12/13/16 06:30 98.1 F 105 18 118/67 94 L 12/13/16 04:10 99.2 F 110 18 126/70 93 L Intake and Output 12/12/16 12/13/16 12/13/16 23:59 07:59 15:59 Intake Total 1662.4 / 1662.4 761 / 761 467.6 / 467.6 Output Total 0 / 0 200 / 200 0 / 0 Balance 1662.4 / 1662.4 561 / 561 467.6 / 467.6 Intake: IV Fluids 1182.4 / 1182.4 611 / 611 207.6 / 207.6 0.9 % Sodium Chloride 1, 1000 / 1000 000 ML @ 100 mls/hr IVC . Q10H [facility] Rx#:[id number] Heparin 25,000 UNIT/500 82.4 / 82.4 111 / 111 107.6 / 107.6 ML D5W 25,000 unit In 500 ml @ 12 UNIT/KG/HR 16. 765 mls/hr IVC .Q24H [facility] Rx#:[id number] Cipro 400 MG/200 ML 400 200 / 200 mg In 200 ml @ 200 mls/hr IVPB Q12H [facility] Rx#: [id number] Flagyl 500 MG/100 ML 500 100 / 100 100 / 100 mg In 100 ml @ 100 mls/hr IVPB Q8H [facility] Rx#: [id number] Potassium Chloride 10 mEq 200 / 200 100 / 100 /100mL 10 meq In 100 ml @ 100 mls/hr IVPB Q1H [facility] Rx#:[id number] Oral 480 / 480 150 / 150 260 / 260 Output: Urine 0 / 0 200 / 200 0 / 0 Other: Meal Dinner Breakfast Stool Size Small Small Small Stool Consistency loose loose liquid Stool Color Brown Green Brown Yellow # Voids 1 1 1 # Bowel Movements 1 0 1 Weight 68.492 kg Patient Weight 12/13/16 23:59 Weight 68.492 kg - General physical appearance well developed, well nourished, no distress - Eyes normal ocular movement - ENT normal mucosa, atraumatic, normocephalic - Neck Neck exam: trachea midline - Respiratory normal respiratory effort, clear to auscultation - Cardiovascular Cardiovascular exam: Present: RRR - Abdomen Abdomen: Present: bowel sounds present, soft, tender (expected post-operative tenderness) - Incision Incision: Present: clean and dry, intact - Neurologic CN 2-12 grossly intact - Musculoskeletal normal gait, normal posture - Psychiatric oriented to time, oriented to person, oriented to place, speech is normal, memory intact - Labs 12/13/16 03:42 12/13/16 12:07 Diabetes panel 12/13/16 Range/Units 03:42 Sodium 138 (136-145) mEq/L Potassium 2.2 L* D (3.5-4.5) mEq/L Chloride 106 (98-109) mEq/L Carbon Dioxide 25 (19-29) mEq/L BUN 5 L (7-20) mg/dL Creatinine 0.58 (0.57-1.11) mg/dL Glucose 165 H (70-99) mg/dL Calcium 8.2 L (8.6-10.8) mg/dL Calcium panel 12/13/16 Range/Units 03:42 Calcium 8.2 L (8.6-10.8) mg/dL Pituitary panel 12/13/16 Range/Units 03:42 Sodium 138 (136-145) mEq/L Potassium 2.2 L* D (3.5-4.5) mEq/L Chloride 106 (98-109) mEq/L Carbon Dioxide 25 (19-29) mEq/L BUN 5 L (7-20) mg/dL Creatinine 0.58 (0.57-1.11) mg/dL Glucose 165 H (70-99) mg/dL Calcium 8.2 L (8.6-10.8) mg/dL Adrenal panel 12/13/16 Range/Units 03:42 Sodium 138 (136-145) mEq/L Potassium 2.2 L* D (3.5-4.5) mEq/L Chloride 106 (98-109) mEq/L Carbon Dioxide 25 (19-29) mEq/L BUN 5 L (7-20) mg/dL Creatinine 0.58 (0.57-1.11) mg/dL Glucose 165 H (70-99) mg/dL Calcium 8.2 L (8.6-10.8) mg/dL - VTE Documentation of Mechanical Device: Intermittent pneumatic compression device Consult Discharge Plan - Plan Referrals: Teofilo Salas MD [Partnered Physician] - 12/26/16 2:35 pm Frank Mcdonald MD [Primary Care Provider] - - Attending Attestation I examined this patient and my medical decision-making was reviewed with the MANAGER PEDIATRIC/PA/Advanced Practice Nurse/Resident Physician. I agree with the documented findings, disposition and treatment plan as described except to the extent set forth below. I reviewed the history and physical exam as noted above and examined the patient with apractitioner present. Patient admits to increased pain. Also bowel movements and flatus without nausea. Patient is improving and white count decreased today. Continue ambulation and potassium level (hypokalemia with potassium replacement oral and via IV).
[2016-12-13 12:27] LABS: BUN/Creatinine Ratio 6 (6-26); Calcium 8.4 mg/dL (8.6-10.8); Carbon Dioxide 25 mEq/L (19-29); Chloride 105 mEq/L (98-109); Glucose 142 mg/dL (70-99); Osmolality,Calculated 285 (280-300); Potassium 2.6 mEq/L (3.5-4.5); Sodium 138 mEq/L (136-145); eGFR For African Americans > 60 (> 60); eGFR For Non-African Americans > 60 (> 60)
[2016-12-13 12:28] LABS: Blood Urea Nitrogen 4 mg/dL (7-20)
[2016-12-13] MEDS: Heparin 25,000 UNIT/500 ML D5W 25,000 UNIT/500 ML MLS IVC SCH (17:54)
[2016-12-14] MEDS: *HR* HYDROmorphone (PF) 1 MG/ML SYRINGE IVP PRN ×6 (00:47→23:01)
[2016-12-14] MEDS: MetroNIDAZOLE 500 MG/100 ML 500 MG/100 ML BAG IVPB SCH ×3 (01:42→17:52)
[2016-12-14 04:05] LABS: Basophils % 0.2 %; Eosinophils % 0.2 %; Hemoglobin 8.2 g/dL (11.5-15.4); Red Cell Distribution Width 29.2 % (11.5-14.5)
[2016-12-14 04:07] LABS: Hematocrit 27.1 % (35.3-44.9); Immature Granulocytes % 0.6 % (0-4); Lymphocytes # 1.3 K/mcL (0.6-4.6); Lymphocytes % 7.7 %; Mean Corpuscular HGB Conc 30.3 g/dL (31.6-35.5); Mean Corpuscular Hemoglobin 22.3 pg (28.0-33.3); Mean Corpuscular Volume 73.6 fL (83.0-100.0); Mean Platelet Volume 9.4 fL (9.4-12.4); Monocytes # 1.2 K/mcL (0.0-1.3); Monocytes % 6.9 %; Platelet Count 297 K/mcL (140-400); Red Blood Count 3.68 M/mcL (3.82-4.97); Segmented Neutrophils % 84.4 %
[2016-12-14 04:11] LABS: Neutrophils # 14.4 K/mcL (1.6-8.9)
[2016-12-14 04:22] LABS: BUN/Creatinine Ratio 7 (6-26); Calcium 7.8 mg/dL (8.6-10.8); Carbon Dioxide 25 mEq/L (19-29); Chloride 105 mEq/L (98-109); Glucose 146 mg/dL (70-99); Magnesium 0.9 mg/dL (1.6-2.6); Osmolality,Calculated 290 (280-300); Phosphorous 1.4 mg/dL (2.3-4.7); Sodium 140 mEq/L (136-145); eGFR For African Americans > 60 (> 60); eGFR For Non-African Americans > 60 (> 60)
[2016-12-14 04:27] LABS: Blood Urea Nitrogen 4 mg/dL (7-20)
[2016-12-14 04:29] LABS: Potassium 2.4 mEq/L (3.5-4.5)
[2016-12-14 04:36] LABS: Anisocytosis 3+ (Not Present); Platelet Estimate Normal (Normal)
[2016-12-14] MEDS ORDERED: Potassium Chloride 40 MEQ, Lidocaine 1% 2 ML in D5% in Water 500 ML IVPB ONE (04:36)
[2016-12-14 04:37] LABS: Microcytosis Present (Not Present)
[2016-12-14 04:38] LABS: Hypochromasia Present (Not Present)
[2016-12-14] MEDS: 0.9 % Sodium Chloride 1,000 ML IVC SCH ×2 (05:23→21:15)
[2016-12-14] MEDS: Losartan/HCTZ 50-12.5 TABLET PO SCH (09:17)
[2016-12-14] MEDS: amLODIPine 5 MG TABLET PO SCH (09:17)
[2016-12-14] MEDS: Aspirin Enteric Coated 81 MG Tablet PO SCH (09:17)
[2016-12-14] MEDS: Pantoprazole 40 MG VIAL IVP SCH (09:18)
[2016-12-14] MEDS: Heparin 25,000 UNIT/500 ML D5W 25,000 UNIT/500 ML MLS IVC SCH ×2 (10:06→22:58)
--- NOTE | 2016-12-14 12:13 | General Surgery Progress Note ---
Date of Encounter: 12/14/16 Time of Encounter: 12:00 - Assessment and Plan (1) Colon cancer Current Visit: No Status: Acute POD #4 Robot assisted laparoscopic lysis of adhesions (45min), Robot assisted transverse colectomy with Dr. 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 WBC continues to decrease. Will continue to follow. CT scan of abdomen/pelvis shows evidence of thrombus in the SMV- patient and family notitfied Continue low dose heparin gtt (no bolus). Discussed with Hematology and will likely start Xarelto 20mg daily tomorrow. 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 (2) Hypertension Current Visit: No Status: Chronic Normotensive Continue to monitor and adjust medications as necessary May resume home regimen Qualifiers: Hypertension type: essential hypertension Qualified Code(s): I10 - Essential (primary) hypertension (3) GERD (gastroesophageal reflux disease) Current Visit: No Status: Chronic PPI therapy daily Qualifiers: Esophagitis presence: esophagitis presence not specified Qualified Code(s) : K21.9 - Gastro-esophageal reflux disease without esophagitis (4) Hypokalemia Current Visit: Yes Status: Acute Replace potassium- 80 PO and 40 IV Repeat potassium in am (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 Switch to Xarelto as noted above. Empiric antibiotics started- Cipro and Flagyl Repeat am labs Qualifiers: Leukocytosis type: unspecified Qualified Code(s): D72.829 - Elevated white blood cell count, unspecified (7) DVT prophylaxis Current Visit: No Status: Acute Heparin gtt started for SMV thrombus Subjective Patient reports: no new complaints (Patient has minimal pain. No nausea or vomiting. Positive flatus and BMs.) Objective Vital Signs - Last 8 Hours Temp Pulse Resp BP Pulse Ox 12/14/16 09:10 98.3 F 94 16 151/61 96 Intake and Output 12/13/16 12/14/1617 23:59 07:59 15:59 Intake Total 1121 / 1121 1437 / 1437 Output Total 300 / 300 Balance 1121 / 1121 1137 / 1137 Intake: IV Fluids 641 / 641 1437 / 1437 0.9 % Sodium Chloride 1, 1000 / 1000 000 ML @ 75 mls/hr IVC . [id number] [facility] Rx#: [id number] Heparin 25,000 UNIT/500 441 / 441 137 / 137 ML D5W 25,000 unit In 500 ml @ 12 UNIT/KG/HR 16. 765 mls/hr IVC .Q24H [facility] Rx#:[id number] Cipro 400 MG/200 ML 400 200 / 200 mg In 200 ml @ 200 mls/hr IVPB Q12H [facility] Rx#: [id number] Flagyl 500 MG/100 ML 500 100 / 100 100 / 100 mg In 100 ml @ 100 mls/hr IVPB Q8H [facility] Rx#: [id number] Potassium Chloride 10 mEq 100 / 100 /100mL 10 meq In 100 ml @ 100 mls/hr IVPB Q1H [facility] Rx#:[id number] Oral 480 / 480 Output: Urine 300 / 300 Other: Meal Nourishment/Supplement Percent of Meal Consumed 100% Stool Size Moderate Stool Consistency liquid Stool Color Brown # Voids 1 1 1 # Bowel Movements 1 Weight 70.3 kg Patient Weight 12/14/16 23:59 Weight 70.3 kg - General physical appearance well developed, well nourished, no distress - Cardiovascular Cardiovascular exam: Present: RRR, no murmurs/rubs/gallops - Abdomen Abdomen: Present: bowel sounds present, soft (Minimal incisional pain to palpation. Incision CDI.) - Neurologic CN 2-12 grossly intact - Labs 12/14/16 03:47 12/14/16 03:47 Diabetes panel 12/13/16 12/14/16 Range/Units 12:07 03:47 Sodium 138 140 (136-145) mEq/L Potassium 2.6 L 2.4 L* (3.5-4.5) mEq/L Chloride 105 105 (98-109) mEq/L Carbon Dioxide 25 25 (19-29) mEq/L BUN 4 L 4 L (7-20) mg/dL Creatinine 0.62 0.57 (0.57-1.11) mg/dL Glucose 142 H 146 H (70-99) mg/dL Calcium 8.4 L 7.8 L (8.6-10.8) mg/dL Calcium panel 12/13/16 12/14/16 Range/Units 12:07 03:47 Calcium 8.4 L 7.8 L (8.6-10.8) mg/dL Phosphorus 1.4 L (2.3-4.7) mg/dL Pituitary panel 12/13/16 12/14/16 Range/Units 12:07 03:47 Sodium 138 140 (136-145) mEq/L Potassium 2.6 L 2.4 L* (3.5-4.5) mEq/L Chloride 105 105 (98-109) mEq/L Carbon Dioxide 25 25 (19-29) mEq/L BUN 4 L 4 L (7-20) mg/dL Creatinine 0.62 0.57 (0.57-1.11) mg/dL Glucose 142 H 146 H (70-99) mg/dL Calcium 8.4 L 7.8 L (8.6-10.8) mg/dL Adrenal panel 12/13/16 12/14/16 Range/Units 12:07 03:47 Sodium 138 140 (136-145) mEq/L Potassium 2.6 L 2.4 L* (3.5-4.5) mEq/L Chloride 105 105 (98-109) mEq/L Carbon Dioxide 25 25 (19-29) mEq/L BUN 4 L 4 L (7-20) mg/dL Creatinine 0.62 0.57 (0.57-1.11) mg/dL Glucose 142 H 146 H (70-99) mg/dL Calcium 8.4 L 7.8 L (8.6-10.8) mg/dL - VTE Documentation of Mechanical Device: Intermittent pneumatic compression device Consult Discharge Plan - Plan Referrals: Teofilo Salas MD [Partnered Physician] - 12/26/16 2:35 pm Frank Mcdonald MD [Primary Care Provider] -
[2016-12-14] MEDS ORDERED: *HR* Heparin 5,000 UNIT/ML VIAL ONE (12:52)
[2016-12-14] MEDS ORDERED: Magnesium Sulfate 2 GM in D5% in Water 100 ML IVPB ONE (15:16)
[2016-12-15] MEDS: MetroNIDAZOLE 500 MG/100 ML 500 MG/100 ML BAG IVPB SCH ×3 (02:16→17:21)
[2016-12-15] MEDS: *HR* HYDROmorphone (PF) 1 MG/ML SYRINGE IVP PRN ×3 (04:02→13:24)
[2016-12-15 08:05] LABS: Hematocrit 26.9 % (35.3-44.9); Hemoglobin 8.5 g/dL (11.5-15.4)
[2016-12-15 08:13] LABS: BUN/Creatinine Ratio 4 (6-26); Calcium 7.7 mg/dL (8.6-10.8); Carbon Dioxide 26 mEq/L (19-29); Chloride 106 mEq/L (98-109); Glucose 116 mg/dL (70-99); Osmolality,Calculated 285 (280-300); Sodium 139 mEq/L (136-145); eGFR For African Americans > 60 (> 60); eGFR For Non-African Americans > 60 (> 60)
[2016-12-15 08:14] LABS: Blood Urea Nitrogen 2 mg/dL (7-20)
[2016-12-15 08:18] LABS: Potassium 2.4 mEq/L (3.5-4.5)
[2016-12-15 08:34] LABS: Magnesium 1.2 mg/dL (1.6-2.6)
[2016-12-15] MEDS ORDERED: Magnesium Sulfate 2 GM in D5% in Water 100 ML IVPB ONE (08:38)
[2016-12-15] MEDS: Losartan/HCTZ 50-12.5 TABLET PO SCH (09:57)
[2016-12-15] MEDS: Aspirin Enteric Coated 81 MG Tablet PO SCH (09:58)
[2016-12-15] MEDS: Pantoprazole 40 MG VIAL IVP SCH (09:58)
[2016-12-15] MEDS: amLODIPine 5 MG TABLET PO SCH (09:59)
[2016-12-15] MEDS: 0.9 % Sodium Chloride 1,000 ML IVC SCH (10:27)
[2016-12-15] MEDS: Heparin 25,000 UNIT/500 ML D5W 25,000 UNIT/500 ML MLS IVC SCH (13:23)
[2016-12-15] MEDS ORDERED: *HR* OxyCODONE/APAP 10/325 TABLET PO PRN (15:52)
--- NOTE | 2016-12-15 16:24 | General Surgery Progress Note ---
Date of Encounter: 12/15/16 Time of Encounter: 16:24 - Assessment and Plan (1) Colon cancer Current Visit: No Status: Acute POD #5 Robot assisted laparoscopic lysis of adhesions (45min), Robot assisted transverse colectomy with Dr. 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 Will repeat CBC in am. CT scan of abdomen/pelvis shows evidence of thrombus in the SMV- patient and family notitfied Continue low dose heparin gtt (no bolus). Xarelto started today. Will D/C heparin this evening. 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 Heparin to be stopped today. (6) Leukocytosis Current Visit: Yes Status: Acute Improving CT scan of abdomen/pelvis shows evidence of thrombus in the SMV- patient and family notitfied Continue low dose heparin gtt without bolus. Switch to Xarelto as noted above. Empiric antibiotics started- Cipro and Flagyl Repeat labs in am. Qualifiers: Leukocytosis type: unspecified Qualified Code(s): D72.829 - Elevated white blood cell count, unspecified (7) DVT prophylaxis Current Visit: No Status: Acute Heparin gtt started for SMV thrombus Subjective Patient reports: no new complaints, feels better Objective Vital Signs - Last 8 Hours Temp Pulse Resp BP Pulse Ox 12/15/16 16:08 98.3 F 98 18 129/68 96 12/15/16 11:19 98.5 F 90 16 121/68 95 Intake and Output 12/15/16 12/15/16 12/15/16 07:59 15:59 23:59 Intake Total 518 / 518 1552 / 1552 Balance 518 / 518 1552 / 1552 Intake: IV Fluids 468 / 468 1432 / 1432 0.9 % Sodium Chloride 1, 1000 / 1000 000 ML @ 75 mls/hr IVC . [id number] [facility] Rx#: [id number] Heparin 25,000 UNIT/500 168 / 168 332 / 332 ML D5W 25,000 unit In 500 ml @ 12 UNIT/KG/HR 16. 765 mls/hr IVC .Q24H [facility] Rx#:[id number] Cipro 400 MG/200 ML 400 200 / 200 mg In 200 ml @ 200 mls/hr IVPB Q12H [facility] Rx#: [id number] Flagyl 500 MG/100 ML 500 100 / 100 100 / 100 mg In 100 ml @ 100 mls/hr IVPB Q8H [facility] Rx#: [id number] Oral 50 / 50 120 / 120 Other: Meal Breakfast Percent of Meal Consumed 50% Stool Size Moderate Stool Consistency loose soft Stool Color Brown # Voids 1 1 1 Weight 70.2 kg Patient Weight 12/15/16 23:59 Weight 70.2 kg - General physical appearance well developed, no distress - Respiratory normal expansion - Cardiovascular Cardiovascular exam: Present: RRR, no murmurs/rubs/gallops - Abdomen Abdomen: Present: bowel sounds present (Incision CDI. No erythema. No drainage. ), soft - Labs 12/15/16 07:50 12/15/16 07:50 Diabetes panel 12/15/16 Range/Units 07:50 Sodium 139 (136-145) mEq/L Potassium 2.4 L* (3.5-4.5) mEq/L Chloride 106 (98-109) mEq/L Carbon Dioxide 26 (19-29) mEq/L BUN 2 L (7-20) mg/dL Creatinine 0.53 L (0.57-1.11) mg/dL Glucose 116 H (70-99) mg/dL Calcium 7.7 L (8.6-10.8) mg/dL Calcium panel 12/15/16 Range/Units 07:50 Calcium 7.7 L (8.6-10.8) mg/dL Pituitary panel 12/15/16 Range/Units 07:50 Sodium 139 (136-145) mEq/L Potassium 2.4 L* (3.5-4.5) mEq/L Chloride 106 (98-109) mEq/L Carbon Dioxide 26 (19-29) mEq/L BUN 2 L (7-20) mg/dL Creatinine 0.53 L (0.57-1.11) mg/dL Glucose 116 H (70-99) mg/dL Calcium 7.7 L (8.6-10.8) mg/dL Adrenal panel 12/15/16 Range/Units 07:50 Sodium 139 (136-145) mEq/L Potassium 2.4 L* (3.5-4.5) mEq/L Chloride 106 (98-109) mEq/L Carbon Dioxide 26 (19-29) mEq/L BUN 2 L (7-20) mg/dL Creatinine 0.53 L (0.57-1.11) mg/dL Glucose 116 H (70-99) mg/dL Calcium 7.7 L (8.6-10.8) mg/dL - VTE Documentation of Mechanical Device: Intermittent pneumatic compression device Consult Discharge Plan - Plan Referrals: Teofilo Salas MD [Partnered Physician] - 12/26/16 2:35 pm Frank Mcdonald MD [Primary Care Provider] -
[2016-12-15] MEDS ORDERED: Potassium Chloride 40 MEQ, Lidocaine 1% 2 ML in D5% in Water 500 ML IVPB ONE (16:54)
[2016-12-15] MEDS: *HR* Rivaroxaban 10 MG TABLET PO SCH (17:21)
[2016-12-16] MEDS: MetroNIDAZOLE 500 MG/100 ML 500 MG/100 ML BAG IVPB SCH (01:58)
[2016-12-16 03:25] LABS: Basophils % 0.3 %; Eosinophils # 0.2 K/mcL (0.0-0.6); Eosinophils % 1.6 %; Hematocrit 24.5 % (35.3-44.9); Hemoglobin 7.8 g/dL (11.5-15.4); Immature Granulocytes % 0.9 % (0-4); Lymphocytes # 1.8 K/mcL (0.6-4.6); Lymphocytes % 15.3 %; Mean Corpuscular HGB Conc 31.8 g/dL (31.6-35.5); Mean Corpuscular Hemoglobin 23.7 pg (28.0-33.3); Mean Corpuscular Volume 74.5 fL (83.0-100.0); Mean Platelet Volume 9.8 fL (9.4-12.4); Monocytes % 8.8 %; Neutrophils # 8.6 K/mcL (1.6-8.9); Platelet Count 267 K/mcL (140-400); Red Blood Count 3.29 M/mcL (3.82-4.97); Red Cell Distribution Width 29.6 % (11.5-14.5); Segmented Neutrophils % 73.1 %
[2016-12-16 03:36] LABS: BUN/Creatinine Ratio 6 (6-26); Blood Urea Nitrogen 3 mg/dL (7-20); Calcium 7.4 mg/dL (8.6-10.8); Carbon Dioxide 25 mEq/L (19-29); Chloride 107 mEq/L (98-109); Glucose 126 mg/dL (70-99); Osmolality,Calculated 286 (280-300); Potassium 2.9 mEq/L (3.5-4.5); Sodium 139 mEq/L (136-145); eGFR For African Americans > 60 (> 60); eGFR For Non-African Americans > 60 (> 60)
[2016-12-16 03:54] LABS: Platelet Estimate Normal (Normal)
[2016-12-16 03:55] LABS: Acanthocytes 1+ (Not Present)
[2016-12-16 03:57] LABS: Poikilocytosis 1+ (Not Present); Polychromasia 1+ (Not Present)
--- NOTE | 2016-12-16 07:45 | General Surgery Progress Note ---
Date of Encounter: 12/16/16 Time of Encounter: 05:45 - Assessment and Plan (1) Colon cancer Current Visit: No Status: Acute POD #6 Robot assisted laparoscopic lysis of adhesions (45min), Robot assisted transverse colectomy with Dr. Salas On soft diet. CT scan of abdomen/pelvis shows evidence of thrombus in the SMV- patient and family notitfied On Xarelto. 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 (2) Hypertension Current Visit: No Status: Chronic Normotensive Continue to monitor and adjust medications as necessary May resume home regimen Qualifiers: Hypertension type: essential hypertension Qualified Code(s): I10 - Essential (primary) hypertension (3) GERD (gastroesophageal reflux disease) Current Visit: No Status: Chronic PPI therapy daily Qualifiers: Esophagitis presence: esophagitis presence not specified Qualified Code(s) : K21.9 - Gastro-esophageal reflux disease without esophagitis (4) Hypokalemia Current Visit: Yes Status: Acute Potassimu 2. today, improving. Will replace potassium- 80 PO. 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 Heparin to be stopped today. (6) Leukocytosis Current Visit: Yes Status: Acute Improving; now 11K CT scan of abdomen/pelvis shows evidence of thrombus in the SMV- patient and family notitfied Continue low dose heparin gtt without bolus. Switch to Xarelto as noted above. Empiric antibiotics started- Cipro and Flagyl. Will DC. Repeat labs in am. Qualifiers: Leukocytosis type: unspecified Qualified Code(s): D72.829 - Elevated white blood cell count, unspecified (7) DVT prophylaxis Current Visit: No Status: Acute Xarelto started for SMV thrombus (8) Anemia Current Visit: No Status: Acute Noted decrease in hemoglobin level. Patient is several liters positive since her admission so the hemoglobin decreases likely delusional and not blood loss related. Not recorded blood transfusion and will just monitor with a repeat CBC at this time. Qualifiers: Other causes of anemia: other cause, not classified Qualified Code(s): D64.89 - Other specified anemias Subjective Patient reports: no new complaints, other (Patient has minimal abdominal pain. No nausea or vomiting. Positive BMs (liquid). No rectal bleeding. She does admit to sneezing and noting blood with sneezing.) Objective Vital Signs - Last 8 Hours Temp Pulse Resp BP Pulse Ox 12/16/16 06:42 98.2 F 98 16 122/71 94 L Intake and Output 12/15/16 12/15/16 12/16/16 15:59 23:59 07:59 Intake Total 1672 / 1672 1762 / 1762 300 / 300 Output Total 0 / 0 0 / 0 Balance 1672 / 1672 1762 / 1762 300 / 300 Intake: IV Fluids 1432 / 1432 1322 / 1322 300 / 300 0.9 % Sodium Chloride 1, 1000 / 1000 000 ML @ 75 mls/hr IVC . [id number] [facility] Rx#: [id number] Heparin 25,000 UNIT/500 332 / 332 500 / 500 ML D5W 25,000 unit In 500 ml @ 12 UNIT/KG/HR 16. 765 mls/hr IVC .Q24H [facility] Rx#:[id number] Cipro 400 MG/200 ML 400 200 / 200 200 / 200 mg In 200 ml @ 200 mls/hr IVPB Q12H [facility] Rx#: [id number] Flagyl 500 MG/100 ML 500 100 / 100 100 / 100 100 / 100 mg In 100 ml @ 100 mls/hr IVPB Q8H [facility] Rx#: [id number] KCl 40 MEQ Xylocaine 2 ML 522 / 522 In Dextrose 5% 500 ML @ 130.5 mls/hr IVPB ONCE ONE Rx#:[id number] Oral 240 / 240 440 / 440 Output: Urine 0 / 0 0 / 0 Other: Meal Lunch Dinner Percent of Meal Consumed 100% 100% Stool Size Moderate Stool Consistency loose soft Stool Color Brown # Voids 1 1 # Bowel Movements 0 Weight 70.21 kg Patient Weight 12/16/16 23:59 Weight 70.21 kg - General physical appearance well developed, well nourished, no distress - Respiratory normal expansion, clear to auscultation - Abdomen Abdomen: Present: bowel sounds present, soft (Incisions CDI. No erythema. No drainage.) - Labs 12/16/16 02:00 12/16/16 02:00 Diabetes panel 12/15/16 12/15/1617 Range/Units 07:50 16:22 02:00 Sodium 139 139 (136-145) mEq/L Potassium 2.4 L* 2.7 L 2.9 L (3.5-4.5) mEq/L Chloride 106 107 (98-109) mEq/L Carbon Dioxide 26 25 (19-29) mEq/L BUN 2 L 3 L (7-20) mg/dL Creatinine 0.53 L 0.54 L (0.57-1.11) mg/dL Glucose 116 H 126 H (70-99) mg/dL Calcium 7.7 L 7.4 L (8.6-10.8) mg/dL Calcium panel 12/15/16 12/16/16 Range/Units 07:50 02:00 Calcium 7.7 L 7.4 L (8.6-10.8) mg/dL Pituitary panel 12/15/16 12/15/16 12/16/16 Range/Units 07:50 16:22 02:00 Sodium 139 139 (136-145) mEq/L Potassium 2.4 L* 2.7 L 2.9 L (3.5-4.5) mEq/L Chloride 106 107 (98-109) mEq/L Carbon Dioxide 26 25 (19-29) mEq/L BUN 2 L 3 L (7-20) mg/dL Creatinine 0.53 L 0.54 L (0.57-1.11) mg/dL Glucose 116 H 126 H (70-99) mg/dL Calcium 7.7 L 7.4 L (8.6-10.8) mg/dL Adrenal panel 12/15/16 12/15/16 12/16/16 Range/Units 07:50 16:22 02:00 Sodium 139 139 (136-145) mEq/L Potassium 2.4 L* 2.7 L 2.9 L (3.5-4.5) mEq/L Chloride 106 107 (98-109) mEq/L Carbon Dioxide 26 25 (19-29) mEq/L BUN 2 L 3 L (7-20) mg/dL Creatinine 0.53 L 0.54 L (0.57-1.11) mg/dL Glucose 116 H 126 H (70-99) mg/dL Calcium 7.7 L 7.4 L (8.6-10.8) mg/dL - VTE Documentation of Mechanical Device: Intermittent pneumatic compression device Consult Discharge Plan - Plan Referrals: Teofilo Salas MD [Partnered Physician] - 12/26/16 2:35 pm Frank Mcdonald MD [Primary Care Provider] -
[2016-12-16] MEDS: Pantoprazole 40 MG VIAL IVP SCH (08:43)
[2016-12-16] MEDS: amLODIPine 5 MG TABLET PO SCH (08:44)
[2016-12-16] MEDS: Aspirin Enteric Coated 81 MG Tablet PO SCH (08:44)
[2016-12-16] MEDS: Losartan/HCTZ 50-12.5 TABLET PO SCH (08:44)
[2016-12-16] MEDS: Ondansetron 4 MG/2 ML VIAL IVP PRN (09:14)
[2016-12-16] MEDS: *HR* Rivaroxaban 10 MG TABLET PO SCH (16:36)
[2016-12-16 17:36] LABS: Hematocrit 29.5 % (35.3-44.9); Hemoglobin 9.1 g/dL (11.5-15.4)
[2016-12-17 03:43] LABS: BUN/Creatinine Ratio 8 (6-26); Blood Urea Nitrogen 4 mg/dL (7-20); Carbon Dioxide 25 mEq/L (19-29); Chloride 106 mEq/L (98-109); Glucose 116 mg/dL (70-99); Osmolality,Calculated 290 (280-300); Sodium 141 mEq/L (136-145); eGFR For African Americans > 60 (> 60); eGFR For Non-African Americans > 60 (> 60)
[2016-12-17 03:44] LABS: Potassium 3.3 mEq/L (3.5-4.5)
[2016-12-17] MEDS: Aspirin Enteric Coated 81 MG Tablet PO SCH (09:28)
[2016-12-17] MEDS: Pantoprazole 40 MG VIAL IVP SCH (09:28)
[2016-12-17] MEDS: Losartan/HCTZ 50-12.5 TABLET PO SCH (09:28)
[2016-12-17] MEDS: amLODIPine 5 MG TABLET PO SCH (09:28)
--- NOTE | 2016-12-17 11:58 | Discharge Summary ---
Date of Encounter: 12/17/16 Time of Encounter: 11:15 - Discharge Diagnosis (1) Colon cancer Priority: Primary Status: Acute 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 (2) Hypertension Priority: Secondary Status: Chronic Qualifiers: Hypertension type: essential hypertension Qualified Code(s): I10 - Essential (primary) hypertension (3) GERD (gastroesophageal reflux disease) Priority: Secondary Status: Chronic Qualifiers: Esophagitis presence: esophagitis presence not specified Qualified Code(s) : K21.9 - Gastro-esophageal reflux disease without esophagitis (4) Hypokalemia Priority: Secondary Status: Resolved (5) Superior mesenteric vein thrombosis Priority: Secondary Status: Acute (6) Leukocytosis Priority: Secondary Status: Resolved Qualifiers: Leukocytosis type: unspecified Qualified Code(s): D72.829 - Elevated white blood cell count, unspecified (7) DVT prophylaxis Priority: Secondary Status: Acute - Discharge Medications Prescriptions: Ondansetron ODT [Zofran ODT] 4 mg SL Q6HR PRN #30 tab.rapdis PRN Reason: Nausea OxyCODONE/APAP 5/325 [Percocet 5/325 MG] 1 each PO Q6HR PRN #30 tablet PRN Reason: Pain Loperamide HCl [Imodium A-D] 2 mg PO Q4H PRN #60 tablet PRN Reason: Diarrhea Rivaroxaban [Xarelto] 20 mg PO 1700 #60 tablet Home Medications: Amlodipine Besylate 10 mg PO DAILY 11/22/16 [History] Aspirin Enteric Coated [Aspirin EC] 81 mg PO DAILY 11/22/16 [History] Calcium Carbonate/Vitamin D3 [Calcium 600 + Vit D Tablet] 1 each PO DAILY [History] Cyclosporine [Restasis Multidose] 1 drop OP HS 11/22/16 [History] Gluc Polanco/Chondro Polanco A/Vit C/Mn [Glucosamine Chondroitin Tab] 1 each PO DAILY 12/06 [History] LORazepam [Ativan] 1 mg PO HS 11/22/16 [History] Losartan/Hydrochlorothiazide [Hyzaar 100-25 Tablet] 1 each PO DAILY 11/22/16 [ History] Multivitamin [Multi-Day Vitamins] 1 each PO DAILY 11/22/16 [History] Lyndon-3/Dha/Epa/Fish Oil [Fish Oil 1,000 mg Softgel] 1,000 mg PO DAILY 11/22/16 [History] Omeprazole Magnesium [Prilosec Otc] 20 mg PO DAILY 11/22/16 [History] Potassium Chloride [Klor-Con 10] 20 meq PO DAILY 11/22/16 [History] Ferrous Sulfate 325 mg PO DAILY #30 tablet 11/25/16 [Rx] Sennosides/Docusate Sodium [Senna Plus] 1 each PO BID PRN #30 tablet 11/25/16 [ Rx] Loperamide HCl [Imodium A-D] 2 mg PO Q4H PRN #60 tablet 12/17/16 [Rx] Ondansetron ODT [Zofran ODT] 4 mg SL Q6HR PRN #30 tab.rapdis 12/17/16 [Rx] OxyCODONE/APAP 5/325 [Percocet 5/325 MG] 1 each PO Q6HR PRN #30 tablet 12/17/16 [Rx] Rivaroxaban [Xarelto] 20 mg PO 1700 #60 tablet 12/17/16 [Rx] Allergies/Adverse Reactions: Allergies No Known Allergies Allergy (Verified 12/10/16 14:14) General Surgery Exam Initial Vital Signs Temp Pulse Resp BP Pulse Ox 99.1 F 109 18 125/67 98 12/10/16 12:24 12/10/16 12:24 12/10/16 12:24 12/10/16 12:24 12/10/16 12:24 - General physical appearance well developed, well nourished, no distress, no pain - Eyes normal ocular movement - ENT normal mucosa, atraumatic, normocephalic - Neck trachea midline - Respiratory normal respiratory effort, clear to auscultation - Cardiovascular Cardiovascular exam: Present: RRR - Abdomen Abdomen general surgery: Present: bowel sounds present, soft, non tender - Incision Incision: Present: clean and dry, intact - Integumentary Integumentary general surgery: Present: warm and dry - Neurologic Present: CN 2-12 grossly intact - Musculoskeletal Present: normal gait, normal posture - Psychiatric Psychiatric general surgery: Present: appropriate, oriented to person, oriented to place, oriented to time, speech is normal, memory intact Date of admission: 12/10/16 20:33 Primary care physician: Frank Mcdonald MD Consults: 12/12/16 13:05 Consult to Invasive Line Access Team [CONS] Routine Reason for Consult: Limited IV access Line Type: EPIV Discharging clinician: Teofilo Salas ([facility]) Anticipated date of discharge: 12/17/16 - Patient Status Disposition: Home, Self-Care Condition: Good Functional capacity at discharge: independent ambulation Overall status at discharge: patient is progressing back to baseline - Discharge Instructions Follow Up With: Teofilo Salas MD [Partnered Physician] - 12/26/16 2:35 pm Frank Mcdonald MD [Primary Care Provider] - Additional Instructions: #1 may shower, no tub bath for 2 weeks #2 wash incisions with soap and water and pat dry daily #3 no lifting, pushing, pulling more than 15 pounds for the next 5 weeks #4 no driving until off narcotics for 24 hours and able to safely react in the car #5 may climb stairs - Diet and Activity Activity: other (See additional instructions above) Diet: advance to your usual diet (as tolerated) - Hospital Course Hospital course: Ms. Shabazz is a 86 year old female who has a history of colon cancer is is s/p a transverse colon resection with Dr. Salas. Pathology has been reviewed with the patient and her family per Dr. Salas. Her post-operative course was complicated with a SMV thrombus. She was started on a heparin gtt which resolved her symptoms of abdominal pain and leukocytosis. She has been transitioned to Xarelto and is tolerating this well. Her diet was slowly advanced with return of bowel function and she is currently tolerating a soft diet without nausea/vomiting. She has had diarrhea since surgery which is slowly improving. Her stool was negative for clostrium difficile. She has experienced significant hypokalemia post-operatively and has received multiple replacements. Her potassium has stabilized at this time. Her vital signs are stable and she is afebrile. She denies any pain. She is voiding and ambulating without difficulty. We will begin discharge planning and plan for outpatient follow-up in the next 7-10 days. - Time Spent with Patient Total time spent providing and/or coordinating discharge services: Less than 30 minutes Labs on day of discharge: Labs from last 24 hours 12/17/16 12/16/16 12/16/16 03:20 17:27 17:27 Hgb 9.1 L Hct 29.5 L Sodium 141 Potassium 3.3 L 3.3 L Chloride 106 Carbon Dioxide 25 BUN 4 L Creatinine 0.52 L Est GFR ( Amer) > 60 Est GFR (Non-Af Amer) > 60 BUN/Creatinine Ratio 8 Glucose 116 H Calculated Osmolality 290 Calcium 8.0 L Preliminary micro results at discharge 12/12/16 09:45 Blood Culture - Preliminary Peripheral Venipuncture No growth. 12/12/16 09:45 Blood Culture - Preliminary Peripheral Venipuncture No growth. - Impressions ITS Impressions Abdomen/Pelvis CT 12/12/16 11:20 IMPRESSION: 1. 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 There are associated inflammatory changes noted in the mesenty as well as thickening of the small bowel loops in the abdomen. 2. Interval right hemicolectomy. There is no focal fluid collection near the anastomotic site or leak or extravasation of contrast. 3. Pneumoperitoneum, likely related to recent surgery. 4. Colonic diverticula. 5. Smaller bilateral pleural effusions with residual areas of atelectasis in the lung bases. Results were discussed with Dr. Salas at 12:47 p.m. on 12/12/2016. D/ / 12/12/2016 13:12:31 Vasiel Martinez MD / [email or web address] hugo Interpreting Provider: Vasile Martinez MD - Attending Attestation I examined this patient and my medical decision-making was reviewed with the WALKING DRAGLINE OPERATOR/PA/Advanced Practice Nurse/Resident Physician. I agree with the documented findings, disposition and treatment plan as described except to the extent set forth below.
[2016-12-17 20:11] VITALS: BP 87/60
== END 2016-12-17 14:23 | disposition home or self-care (01) | DRG 329 ==
LOC: SAMDAY 11:20 → 3ANU 20:33
PROVIDERS: ADMIT Surgery; ATTEND Surgery

== ENCOUNTER 2016-12-31 14:18 | Observation (INO) ==
[2016-12-31] MEDS ORDERED: 0.9 % Sodium Chloride 1,000 ML IVC ONE (14:52)
--- NOTE | 2016-12-31 15:10 | Emergency Department Note ---
Disposition Clinical Impression: Rectal bleeding, S/P colectomy Disposition: Admitted As Inpatient Condition: Good Referrals: Frank Mcdonald MD [Primary Care Provider] - Forms: ED Satisfaction Letter Time of Disposition: 17:31 GI Bleed HPI - General Chief complaint: ED GI Bleed Stated complaint: bleeding from rectum// surgery 2weeks ago Time Seen by Provider: 12/31/16 14:28 Source: patient Limitations: no limitations Nursing Notes Reviewed: Yes Vital Signs Reviewed: Yes - History of Present Illness HPI Narrative: 86 year old female with HX of post-op colon mass resection per Dr. Salas which was found secondary to persistant rectal bleeding. Patient does not have a colostomy bag and is able to pass stool and is scheduled for her first round of chemotherapy next week. PAtient states that her followup with Dr. Salas was this past and that the incisions looks good and healing well. However shortly there after she started to have bright red blood bleeding from her rectum but denies clots and that her stool which is water like in nature is also mixed with it. Shahzad denies fevers, chest pain, shortness of breath dysuria or vaginal bleeding. Shahzad is experienicng nausea and had one episode of vomitting. Denies abdominal pain. States that her rectal bleeding is getting worse and today she had gross blood during a bowel movement. - Related Data Home Medications Medication Instructions Recorded Confirmed Amlodipine Besylate 10 mg PO DAILY 11/22/16 12/10/16 Aspirin Enteric Coated [Aspirin EC] 81 mg PO DAILY 11/22/16 12/10/16 Calcium Carbonate/Vitamin D3 1 each PO DAILY 11/22/16 12/10/16 [Calcium 600 + Vit D Tablet] Cyclosporine [Restasis Multidose] 1 drop OP HS 11/22/16 12/10/16 Gluc Polanco/Chondro Polanco A/Vit C/Mn 1 each PO DAILY 11/22/16 12/10/16 [Glucosamine Chondroitin Tab] LORazepam [Ativan] 1 mg PO HS 11/22/16 12/10/16 Losartan/Hydrochlorothiazide 1 each PO DAILY 11/22/16 12/10/16 [Hyzaar 100-25 Tablet] Multivitamin [Multi-Day Vitamins] 1 each PO DAILY 11/22/16 12/10/16 [place]-3/Dha/Epa/Fish Oil [Fish Oil 1,000 mg PO DAILY 11/22/16 12/10/16 1,000 mg Softgel] Omeprazole Magnesium [Prilosec Otc] 20 mg PO DAILY 11/22/16 12/10/16 Potassium Chloride [Klor-Con 10] 20 meq PO DAILY 11/22/16 12/10/16 Previous Rx's Medication Instructions Recorded Ferrous Sulfate 325 mg PO DAILY #30 tablet 11/25/16 Sennosides/Docusate Sodium [Senna 1 each PO BID PRN #30 tablet 11/25/16 Plus] Loperamide HCl [Imodium A-D] 2 mg PO Q4H PRN #60 tablet 12/17/16 Ondansetron ODT [Zofran ODT] 4 mg SL Q6HR PRN #30 tab.rapdis 12/17/16 OxyCODONE/APAP 5/325 [Percocet 1 each PO Q6HR PRN #30 tablet 12/17/16 5/325 MG] Rivaroxaban [Xarelto] 20 mg PO 1700 #60 tablet 12/17/16 Allergies Allergy/AdvReac Type Severity Reaction Status Date / Time No Known Allergies Allergy Verified 12/31/16 14:23 Constitutional: Reports: weakness. Denies: fever, chills, weight change Eyes: Denies: eye pain, eye discharge, vision change ENT ED: Denies: ear pain, throat pain, dental pain, hearing loss, epistaxis, congestion, dysphagia Cardiovascular: Denies: chest pain, palpitations, dyspnea on exertion, edema, syncope Respiratory: Denies: cough, dyspnea, wheezes, hemoptysis, stridor Gastrointestinal: Reports: vomiting, diarrhea, melena, other (rectal bleeding). Denies: abdominal pain, constipation, hematemesis, hematochezia Genitourinary: Denies: dysuria, frequency, hematuria, discharge Musculoskeletal: Denies: back pain, neck pain, arthralgia, myalgia Integumentary: Denies: rash, abrasion, lesions Neurological: Reports: weakness. Denies: headache, numbness, paresthesias, confusion, abnormal gait, vertigo Psychiatric: Denies: anxiety, depression, suicidal thoughts, homicidal thoughts , auditory hallucinations, visual hallucinations Endocrine: Reports: fatigue Hematological/Lymphatic: Denies: easy bleeding, easy bruising Past Medical History - Past Medical History Medical history: Reports: arthritis, cancer, GERD, hypertension, other Surgical history: Reports: appendectomy, cholecystectomy, thyroidectomy Psychiatric history: Reports: no psych history - Social History Smoking Status: Never smoker Smokeless Tobacco Status: No Alcohol use: Reports: none Drug use: Reports: none Physical Exam - General Limitations: no limitations General appearance: alert - Head Head exam: atraumatic, normocephalic, normal inspection - Eye Eye exam: Present: normal appearance, PERRL, EOMI - Expanded Eye Exam Eyelids: bilateral: normal inspection Pupils: Left: reactive, Bilateral: regular, round - ENT ENT exam: normal exam, normal oropharynx, mucous membranes moist - Expanded ENT Exam External ear exam: Present: normal external inspection Mouth exam: Present: normal external inspection Teeth exam: Present: normal inspection Throat exam: Present: normal inspection - Neck Neck exam: Present: normal inspection, full ROM, trachea midline - Chest Chest inspection: Present: normal inspection, symmetric chest wall rise - Respiratory Respiratory exam: Present: normal lung sounds bilaterally - Cardiovascular Cardiovascular exam: Present: normal rhythm, tachycardia, normal heart sounds - Abdominal Exam Abdominal exam: Present: soft, Non-Tender, normal bowel sounds, scar (surgical s /p colon mass resection; midline). Absent: tenderness, distention, guarding, rebound, rigidity - Rectal Exam Rectal exam: Present: normal inspection, normal rectal tone, heme (+) stool, bloody stool - Extremities Exam Extremities exam: Present: normal inspection, full ROM. Absent: tenderness, pedal edema - Expanded Upper Extremity Exam Shoulder exam: Present: normal inspection, full ROM Arm exam: Present: normal inspection, full ROM Elbow exam: Present: normal inspection, full ROM Forearm/Wrist exam: Present: normal inspection, full ROM Hand exam: Present: normal inspection, full ROM Vascular exam: Normal: capillary refill, radial pulse - Expanded Lower Extremity Exam Hip/Pelvis exam: Present: normal inspection, full ROM Upper leg exam: Present: normal inspection, full ROM Knee exam: Present: normal inspection, full ROM Lower leg exam: Present: normal inspection, full ROM Ankle exam: Present: normal inspection, full ROM Foot/toe exam: Present: normal inspection, full ROM Neurovascular/Tendon exam: Absent: motor deficit, sensory deficit, tendon deficit - Back Exam Back exam: Present: normal inspection, full ROM. Absent: tenderness - Neurological Exam Neurological exam: Present: alert, oriented X3 - Expanded Neurological Exam Patient oriented to: Present: person, place, time Coma Scale Eye Opening: Spontaneous Coma Scale Motor Response: Obeys Commands Coma Scale Verbal Response: Oriented Coma Scale Total: 15 - Psychiatric Psychiatric exam: Present: normal affect, normal mood - Skin Skin exam: Present: warm, dry, intact, normal color Course Course Narrative: we will do a GI bleed workup including a type/screen for possible transfusion and ABCT with IV contrast for evaluation. IVF therapy due to tachycardia. - Consultations Consultation #1: discussed case with Dr. Salas and he has accepted patient to his service. Shahzad is agreeable to plan. Shahzad is stable. Time: 17:31 Vital Signs Temperature 98.2 F 12/31/16 14:19 Pulse Rate 119 12/31/16 14:19 Respiratory Rate 16 12/31/16 14:19 Blood Pressure 136/77 12/31/16 14:19 O2 Sat by Pulse Oximetry 99 12/31/16 14:19 Temperature 98.2 F 12/31/16 14:19 Pulse Rate 119 12/31/16 14:19 Respiratory Rate 16 12/31/16 14:19 Blood Pressure 136/77 12/31/16 14:19 O2 Sat by Pulse Oximetry 99 12/31/16 14:19 Oxygen Delivery Oxygen Delivery Room Air GI Bleed - Lab Data Result diagrams: 12/31/16 15:43 12/31/16 15:43 Lab Results 12/31/16 12/31/16 12/31/16 Range/Units 15:43 15:43 15:43 WBC 14.9 H (4.3-11.1) K/mcL RBC 3.48 L (3.82-4.97) M/mcL Hgb 8.8 L (11.5-15.4) g/dL Hct 28.5 L (35.3-44.9) % MCV 81.9 L D (83.0-100.0) fL MCH 25.3 L (28.0-33.3) pg MCHC 30.9 L (31.6-35.5) g/dL RDW 28.0 H (11.5-14.5) % Plt Count 430 H (140-400) K/mcL MPV 9.7 (9.4-12.4) fL Seg Neutrophils % 81.0 % Band Neutrophils % 7.0 H (0-4) % Lymphocytes % 7.0 % Monocytes % 3.0 % Basophils % 2.0 % Neutrophils # 13.1 H (1.6-8.9) K/mcL Lymphocytes # 1.0 (0.6-4.6) K/mcL Monocytes # 0.5 (0.0-1.3) K/mcL Basophils # 0.3 H (0.0-0.2) K/mcL Platelet Estimate Slight increase H (Normal) Hypochromasia Present A (Not Present) Poikilocytosis 1+ A (Not Present) Anisocytosis 1+ A (Not Present) Microcytosis Present A (Not Present) PT 16.5 H (9.4-12.1) Seconds INR 1.5 APTT 29.8 (26.0-36.0) Seconds Sodium 139 (136-145) mEq/L Potassium 4.0 (3.5-4.5) mEq/L Chloride 107 (98-109) mEq/L Carbon Dioxide 20 (19-29) mEq/L BUN 26 H (7-20) mg/dL Creatinine 0.96 (0.57-1.11) mg/dL Est GFR ( Amer) > 60 (> 60) Est GFR (Non-Af Amer) 55 L (> 60) BUN/Creatinine Ratio 27 H (6-26) Glucose 155 H (70-99) mg/dL Calculated Osmolality 296 (280-300) Lactic Acid (0.5-2.2) mmol/L Calcium 9.2 (8.6-10.8) mg/dL Total Bilirubin 0.4 (0.2-1.2) mg/dL AST 10 (5-34) Units/L ALT 15 (0-55) Units/L Alkaline Phosphatase 55 (38-126) Units/L Troponin I (0-0.03) ng/mL Serum Total Protein 6.5 (6.0-8.3) g/dL Albumin 2.8 L (3.5-5.0) g/dL Globulin 3.7 H (2.4-3.5) g/dL Albumin/Globulin Ratio 0.8 L (1.1-2.2) Lipase 17 (8-78) Units/L Blood Type Antibody Screen 04/11/17 04/11/17 04/11/17 Range/Units 15:43 15:58 15:58 WBC (4.3-11.1) K/mcL RBC (3.82-4.97) M/mcL Hgb (11.5-15.4) g/dL Hct (35.3-44.9) % MCV (83.0-100.0) fL MCH (28.0-33.3) pg MCHC (31.6-35.5) g/dL RDW (11.5-14.5) % Plt Count (140-400) K/mcL MPV (9.4-12.4) fL Seg Neutrophils % % Band Neutrophils % (0-4) % Lymphocytes % % Monocytes % % Basophils % % Neutrophils # (1.6-8.9) K/mcL Lymphocytes # (0.6-4.6) K/mcL Monocytes # (0.0-1.3) K/mcL Basophils # (0.0-0.2) K/mcL Platelet Estimate (Normal) Hypochromasia (Not Present) Poikilocytosis (Not Present) Anisocytosis (Not Present) Microcytosis (Not Present) PT (9.4-12.1) Seconds INR APTT (26.0-36.0) Seconds Sodium (136-145) mEq/L Potassium (3.5-4.5) mEq/L Chloride (98-109) mEq/L Carbon Dioxide (19-29) mEq/L BUN (7-20) mg/dL Creatinine (0.57-1.11) mg/dL Est GFR ( Amer) (> 60) Est GFR (Non-Af Amer) (> 60) BUN/Creatinine Ratio (6-26) Glucose (70-99) mg/dL Calculated Osmolality (280-300) Lactic Acid 3.5 H (0.5-2.2) mmol/L Calcium (8.6-10.8) mg/dL Total Bilirubin (0.2-1.2) mg/dL AST (5-34) Units/L ALT (0-55) Units/L Alkaline Phosphatase (38-126) Units/L Troponin I 0.00 (0-0.03) ng/mL Serum Total Protein (6.0-8.3) g/dL Albumin (3.5-5.0) g/dL Globulin (2.4-3.5) g/dL Albumin/Globulin Ratio (1.1-2.2) Lipase (8-78) Units/L Blood Type AB POSITIVE Antibody Screen NEGATIVE - EKG Data EKG attestation: Yes I reviewed and interpreted this EKG. EKG results narrative: sinus tachycardia with rate of 118. NO STEMI. normal intervals. nonspecific ST- T wave changes. no new ischemic changes. no change from 11/22/16. [id number]
--- NOTE | 2016-12-31 15:36 | Emergency Department Note ---
Disposition Clinical Impression: Rectal bleeding, S/P colectomy Disposition: Admitted As Inpatient Condition: Good General Adult HPI - General Chief complaint: ED GI Bleed Stated complaint: bleeding from rectum// surgery 2weeks ago Time Seen by Provider: 12/31/16 14:28 Source: patient Limitations: no limitations - History of Present Illness Pain Scale: 0 - Related Data Home Medications Medication Instructions Recorded Confirmed Amlodipine Besylate 10 mg PO DAILY 11/22/16 12/31/16 Aspirin Enteric Coated [Aspirin EC] 81 mg PO DAILY 11/22/16 12/31/16 Calcium Carbonate/Vitamin D3 1 each PO DAILY 11/22/16 12/31/16 [Calcium 600 + Vit D Tablet] Cyclosporine [Restasis Multidose] 1 drop OP BID 11/22/16 12/31/16 Gluc Polanco/Chondro Polanco A/Vit C/Mn 1 each PO DAILY 11/22/16 12/31/16 [Glucosamine Chondroitin Tab] LORazepam [Ativan] 1 mg PO HS 11/22/16 12/31/16 Losartan/Hydrochlorothiazide 1 each PO DAILY 11/22/16 12/31/16 [Hyzaar 100-25 Tablet] Multivitamin [Multi-Day Vitamins] 1 each PO DAILY 11/22/16 12/31/16 [place]-3/Dha/Epa/Fish Oil [Fish Oil 1,000 mg PO DAILY 11/22/16 12/31/16 1,000 mg Softgel] Omeprazole Magnesium [Prilosec Otc] 20 mg PO DAILY 11/22/16 12/31/16 Potassium Chloride [Klor-Con 10] 20 meq PO DAILY 11/22/16 12/31/16 Ascorbate Calcium [Vitamin C] 500 mg PO BID 12/31/16 12/31/16 Ferrous Sulfate 325 mg PO BID 12/31/16 12/31/16 Previous Rx's Medication Instructions Recorded Loperamide HCl [Imodium A-D] 2 mg PO Q4H PRN #60 tablet 12/17/16 Rivaroxaban [Xarelto] 20 mg PO 1700 #60 tablet 12/17/16 Allergies Allergy/AdvReac Type Severity Reaction Status Date / Time No Known Allergies Allergy Verified 12/31/16 14:23 Constitutional: Reports: weakness. Denies: fever, chills, weight change Eyes: Denies: eye pain, eye discharge, vision change ENT ED: Denies: ear pain, throat pain, dental pain, hearing loss, epistaxis, congestion, dysphagia Cardiovascular: Denies: chest pain, palpitations, dyspnea on exertion, edema, syncope Respiratory: Denies: cough, dyspnea, wheezes, hemoptysis, stridor Gastrointestinal: Reports: vomiting, diarrhea, melena, other (rectal bleeding). Denies: abdominal pain, constipation, hematemesis, hematochezia Genitourinary: Denies: dysuria, frequency, hematuria, discharge Musculoskeletal: Denies: back pain, neck pain, arthralgia, myalgia Integumentary: Denies: rash, abrasion, lesions Neurological: Reports: weakness. Denies: headache, numbness, paresthesias, confusion, abnormal gait, vertigo Psychiatric: Denies: anxiety, depression, suicidal thoughts, homicidal thoughts , auditory hallucinations, visual hallucinations Endocrine: Reports: fatigue Hematological/Lymphatic: Denies: easy bleeding, easy bruising Past Medical History - Past Medical History Medical history: Reports: arthritis, cancer, GERD, hypertension, other Surgical history: Reports: appendectomy, cholecystectomy, thyroidectomy Psychiatric history: Reports: no psych history - Social History Smoking Status: Never smoker Smokeless Tobacco Status: No Alcohol use: Reports: none Drug use: Reports: none Physical Exam - General Limitations: no limitations General appearance: alert Course - Reevaluation(s) Reevaluation #1: I saw the patient with the resident, Dr. Mulligan. She presents with a complaint of bright red blood per rectum since yesterday. She recently had a colon surgery done. She says she had a little bit of bleeding after that but not much. Now all of a sudden she is passing bright red blood per rectum into the toilet bowl when she goes to the bathroom. She complains of feeling lightheaded and a little short of breath as well. Today she actually vomited but there was no blood in the vomit. She denies belly pain. Belly exam is unremarkable. Rectal exam performed by medical student showed bright red blood on the finger. Patient's vital signs show some tachycardia. We will need to evaluate her hemoglobin. Disposition will be based on diagnostic results and reevaluation. Time: 15:36 Vital Signs Temperature 98.2 F 12/31/16 14:19 Pulse Rate 119 12/31/16 14:19 Respiratory Rate 16 12/31/16 14:19 Blood Pressure 136/77 12/31/16 14:19 O2 Sat by Pulse Oximetry 99 12/31/16 14:19 Temperature 98.2 F 12/31/16 14:19 Pulse Rate 109 12/31/16 18:00 Respiratory Rate 16 12/31/16 18:00 Blood Pressure 107/68 12/31/16 18:00 O2 Sat by Pulse Oximetry 98 12/31/16 18:00 Oxygen Delivery Oxygen Delivery Room Air Medical Decision Making - Lab Data Result diagrams: 12/31/16 15:43 12/31/16 15:43 Lab Results 12/31/16 12/31/16 12/31/16 Range/Units 15:43 15:43 15:43 WBC 14.9 H (4.3-11.1) K/mcL RBC 3.48 L (3.82-4.97) M/mcL Hgb 8.8 L (11.5-15.4) g/dL Hct 28.5 L (35.3-44.9) % MCV 81.9 L D (83.0-100.0) fL MCH 25.3 L (28.0-33.3) pg MCHC 30.9 L (31.6-35.5) g/dL RDW 28.0 H (11.5-14.5) % Plt Count 430 H (140-400) K/mcL MPV 9.7 (9.4-12.4) fL Seg Neutrophils % 81.0 % Band Neutrophils % 7.0 H (0-4) % Lymphocytes % 7.0 % Monocytes % 3.0 % Basophils % 2.0 % Neutrophils # 13.1 H (1.6-8.9) K/mcL Lymphocytes # 1.0 (0.6-4.6) K/mcL Monocytes # 0.5 (0.0-1.3) K/mcL Basophils # 0.3 H (0.0-0.2) K/mcL Platelet Estimate Slight increase H (Normal) Hypochromasia Present A (Not Present) Poikilocytosis 1+ A (Not Present) Anisocytosis 1+ A (Not Present) Microcytosis Present A (Not Present) PT 16.5 H (9.4-12.1) Seconds INR 1.5 APTT 29.8 (26.0-36.0) Seconds Sodium 139 (136-145) mEq/L Potassium 4.0 (3.5-4.5) mEq/L Chloride 107 (98-109) mEq/L Carbon Dioxide 20 (19-29) mEq/L BUN 26 H (7-20) mg/dL Creatinine 0.96 (0.57-1.11) mg/dL Est GFR ( Amer) > 60 (> 60) Est GFR (Non-Af Amer) 55 L (> 60) BUN/Creatinine Ratio 27 H (6-26) Glucose 155 H (70-99) mg/dL Calculated Osmolality 296 (280-300) Lactic Acid (0.5-2.2) mmol/L Calcium 9.2 (8.6-10.8) mg/dL Total Bilirubin 0.4 (0.2-1.2) mg/dL AST 10 (5-34) Units/L ALT 15 (0-55) Units/L Alkaline Phosphatase 55 (38-126) Units/L Troponin I (0-0.03) ng/mL Serum Total Protein 6.5 (6.0-8.3) g/dL Albumin 2.8 L (3.5-5.0) g/dL Globulin 3.7 H (2.4-3.5) g/dL Albumin/Globulin Ratio 0.8 L (1.1-2.2) Lipase 17 (8-78) Units/L Blood Type Antibody Screen 12/31/16 12/31/16 12/31/16 Range/Units 15:43 15:58 15:58 WBC (4.3-11.1) K/mcL RBC (3.82-4.97) M/mcL Hgb (11.5-15.4) g/dL Hct (35.3-44.9) % MCV (83.0-100.0) fL MCH (28.0-33.3) pg MCHC (31.6-35.5) g/dL RDW (11.5-14.5) % Plt Count (140-400) K/mcL MPV (9.4-12.4) fL Seg Neutrophils % % Band Neutrophils % (0-4) % Lymphocytes % % Monocytes % % Basophils % % Neutrophils # (1.6-8.9) K/mcL Lymphocytes # (0.6-4.6) K/mcL Monocytes # (0.0-1.3) K/mcL Basophils # (0.0-0.2) K/mcL Platelet Estimate (Normal) Hypochromasia (Not Present) Poikilocytosis (Not Present) Anisocytosis (Not Present) Microcytosis (Not Present) PT (9.4-12.1) Seconds INR APTT (26.0-36.0) Seconds Sodium (136-145) mEq/L Potassium (3.5-4.5) mEq/L Chloride (98-109) mEq/L Carbon Dioxide (19-29) mEq/L BUN (7-20) mg/dL Creatinine (0.57-1.11) mg/dL Est GFR ( Amer) (> 60) Est GFR (Non-Af Amer) (> 60) BUN/Creatinine Ratio (6-26) Glucose (70-99) mg/dL Calculated Osmolality (280-300) Lactic Acid 3.5 H (0.5-2.2) mmol/L Calcium (8.6-10.8) mg/dL Total Bilirubin (0.2-1.2) mg/dL AST (5-34) Units/L ALT (0-55) Units/L Alkaline Phosphatase (38-126) Units/L Troponin I 0.00 (0-0.03) ng/mL Serum Total Protein (6.0-8.3) g/dL Albumin (3.5-5.0) g/dL Globulin (2.4-3.5) g/dL Albumin/Globulin Ratio (1.1-2.2) Lipase (8-78) Units/L Blood Type AB POSITIVE Antibody Screen NEGATIVE Attestation Statement - Attestation Attestation: I, Dr. Negro, examined this patient [id number] and my medical decision- making was reviewed with Dr. Mulligan, Resident Physician. I agree with the documented findings, disposition and treatment plan as described except to the extent set forth below. Please see my progress notes for details.
[2016-12-31 15:55] LABS: Hematocrit 28.5 % (35.3-44.9); Hemoglobin 8.8 g/dL (11.5-15.4); Mean Corpuscular HGB Conc 30.9 g/dL (31.6-35.5); Mean Corpuscular Hemoglobin 25.3 pg (28.0-33.3); Mean Platelet Volume 9.7 fL (9.4-12.4); Platelet Count 430 K/mcL (140-400); Red Blood Count 3.48 M/mcL (3.82-4.97)
[2016-12-31 16:02] LABS: INR 1.5; Prothrombin Time 16.5 Seconds (9.4-12.1)
[2016-12-31 16:05] LABS: Activated Partial Thrombo Time 29.8 Seconds (26.0-36.0)
[2016-12-31 16:10] LABS: Alanine Aminotransferase 15 Units/L (0-55); Albumin 2.8 g/dL (3.5-5.0); Albumin/Globulin Ratio 0.8 (1.1-2.2); Alkaline Phosphatase 55 Units/L (38-126); Aspartate Amino Transferase 10 Units/L (5-34); BUN/Creatinine Ratio 27 (6-26); Bilirubin,Total 0.4 mg/dL (0.2-1.2); Blood Urea Nitrogen 26 mg/dL (7-20); Calcium 9.2 mg/dL (8.6-10.8); Carbon Dioxide 20 mEq/L (19-29); Chloride 107 mEq/L (98-109); Globulin 3.7 g/dL (2.4-3.5); Glucose 155 mg/dL (70-99); Lipase 17 Units/L (8-78); Osmolality,Calculated 296 (280-300); Sodium 139 mEq/L (136-145); Total Protein 6.5 g/dL (6.0-8.3); eGFR For African Americans > 60 (> 60); eGFR For Non-African Americans 55 (> 60)
[2016-12-31 16:13] LABS: Mean Corpuscular Volume 81.9 fL (83.0-100.0)
[2016-12-31 16:30] LABS: Basophils # 0.3 K/mcL (0.0-0.2); Monocytes # 0.5 K/mcL (0.0-1.3); Neutrophils # 13.1 K/mcL (1.6-8.9)
[2016-12-31 16:31] LABS: Anisocytosis 1+ (Not Present)
[2016-12-31 16:32] LABS: Hypochromasia Present (Not Present); Microcytosis Present (Not Present); Poikilocytosis 1+ (Not Present)
[2016-12-31] MEDS ORDERED: *HR* Morphine 2 MG/ML SYRINGE IVP PRN (17:40)
[2016-12-31] MEDS ORDERED: *HR* OxyCODONE/APAP 5/325 TABLET PO PRN (17:40)
[2016-12-31] MEDS ORDERED: Pantoprazole 40 MG VIAL IVP ONE (17:40)
--- NOTE | 2016-12-31 17:45 | General Surg History&Physical ---
Date of Encounter: 01/01/17 Time of Encounter: 17:43 Assessment and Plan (1) Rectal bleeding Current Visit: No Status: Acute The assessment and plan as outlined above was discussed with the patient and/or family members who expressed understanding and agreement. All questions were answered. Displaced patient we will monitor her H&H. I will allow her to have clears for now and repeat her hemoglobin level in the morning. (2) Abnormal CT of the abdomen Current Visit: Yes Status: Acute The assessment and plan as outlined above was discussed with the patient and/or family members who expressed understanding and agreement. All questions were answered. I spoke to the patient that I reviewed the CT scan findings. I saw the images personally and although there was a recorded possible air or abscess near the anastomosis this small collection was not at the level of the fluid collection that was 5.3 cm in size. I do not think that fluid collection is infected and I am not certain if the patient has some type of leak or abscess. Her white count is elevated but this could also be due to the stress of the rectal bleeding and some dehydration. We will follow her with white count and tentatively start antibiotics "just in case." The radiologist recommends a CT scan with by mouth and IV contrast which I will likely order within the next 24- 48 hours, however like to see what happens with her white count and her vital signs first. Would be atypical for her to have an anastomotic leak at this stage in her recovery and she has no abdominal pain symptoms. Will follow closely. History of Present Illness Chief complaint: Rectal bleeding HPI: Ms. Shabazz is a 86 year old female who is well known to my service who underwent a robotic transverse colectomy 3 weeks ago. She last saw me in the office last week and was doing well until yesterday evening when she called the office and stated she was having some rectal bleeding. Rectal bleeding worsened with continued bowel movement visit was bright in color. She reported dark colored stool this morning. She denied any nausea or vomiting symptoms. Positive appetite but because of the rectal bleeding she presented to the emergency room for further evaluation. Past Med Surg Social Fam HX - Past Medical History Medical history: arthritis, cancer, GERD, hypertension, other Psychiatric history: no psych history - Past Surgical History Surgical History: appendectomy, cholecystectomy, thyroidectomy - Social History Smoking Status: Never smoker Smokeless Tobacco Status: No Alcohol use: none Drug use: none - Family History Father Hx Family Cardiac Disorders: Yes (hypertension) Hx Family Endocrine Disorder: Yes (diabetes) Medications and Allergies Amlodipine Besylate 10 mg PO DAILY 11/22/16 [History] Aspirin Enteric Coated [Aspirin EC] 81 mg PO DAILY 11/22/16 [History] Calcium Carbonate/Vitamin D3 [Calcium 600 + Vit D Tablet] 1 each PO DAILY [History] Cyclosporine [Restasis Multidose] 1 drop OP BID 11/22/16 [History] Gluc Polanco/Chondro Polanco A/Vit C/Mn [Glucosamine Chondroitin Tab] 1 each PO DAILY 12/06 [History] LORazepam [Ativan] 1 mg PO HS 11/22/16 [History] Losartan/Hydrochlorothiazide [Hyzaar 100-25 Tablet] 1 each PO DAILY 11/22/16 [ History] Multivitamin [Multi-Day Vitamins] 1 each PO DAILY 11/22/16 [History] [place]-3/Dha/Epa/Fish Oil [Fish Oil 1,000 mg Softgel] 1,000 mg PO DAILY 11/22/16 [History] Omeprazole Magnesium [Prilosec Otc] 20 mg PO DAILY 11/22/16 [History] Potassium Chloride [Klor-Con 10] 20 meq PO DAILY 11/22/16 [History] Loperamide HCl [Imodium A-D] 2 mg PO Q4H PRN #60 tablet 12/17/16 [Rx] Rivaroxaban [Xarelto] 20 mg PO 1700 #60 tablet 12/17/16 [Rx] Ascorbate Calcium [Vitamin C] 500 mg PO BID 12/31/16 [History] Ferrous Sulfate 325 mg PO BID 12/31/16 [History] Allergies No Known Allergies Allergy (Verified 12/31/16 14:23) Review of Systems All systems PM: A 10-system review of systems was performed and is negative for pertinent findings except as documented above in the HPI. General Surgery Exam Initial Vital Signs Temp Pulse Resp BP Pulse Ox 98.2 F 119 16 136/77 99 12/31/16 14:19 12/31/16 14:19 12/31/16 14:19 12/31/16 14:19 12/31/16 14:19 Results - Labs 01/01/17 05:45 01/01/17 05:45 Abnormal lab results WBC 14.9 K/mcL (4.3-11.1) H 04/11/17 15:43 RBC 3.48 M/mcL (3.82-4.97) L 12/31/16 15:43 Hgb 8.8 g/dL (11.5-15.4) L 12/31/16 15:43 Hct 28.5 % (35.3-44.9) L 12/31/16 15:43 MCV 81.9 fL (83.0-100.0) L D 12/31/16 15:43 MCH 25.3 pg (28.0-33.3) L 12/31/16 15:43 MCHC 30.9 g/dL (31.6-35.5) L 12/31/16 15:43 RDW 28.0 % (11.5-14.5) H 12/31/16 15:43 Plt Count 430 K/mcL (140-400) H 12/31/16 15:43 Band Neutrophils % 7.0 % (0-4) H 12/31/16 15:43 Neutrophils # 13.1 K/mcL (1.6-8.9) H 12/31/16 15:43 Basophils # 0.3 K/mcL (0.0-0.2) H 12/31/16 15:43 Platelet Estimate Slight increase (Normal) H 12/31/16 15:43 Hypochromasia Present (Not Present) A 12/31/16 15:43 Poikilocytosis 1+ (Not Present) A 12/31/16 15:43 Anisocytosis 1+ (Not Present) A 12/31/16 15:43 Microcytosis Present (Not Present) A 12/31/16 15:43 PT 16.5 Seconds (9.4-12.1) H 12/31/16 15:43 BUN 26 mg/dL (7-20) H 12/31/16 15:43 Est GFR (Non-Af Amer) 55 (> 60) L 12/31/16 15:43 BUN/Creatinine Ratio 27 (6-26) H 12/31/16 15:43 Glucose 155 mg/dL (70-99) H 12/31/16 15:43 Lactic Acid 3.5 mmol/L (0.5-2.2) H 12/31/16 15:58 Albumin 2.8 g/dL (3.5-5.0) L 12/31/16 15:43 Globulin 3.7 g/dL (2.4-3.5) H 12/31/16 15:43 Albumin/Globulin Ratio 0.8 (1.1-2.2) L 12/31/16 15:43 Diabetes panel 12/31/16 Range/Units 15:43 Sodium 139 (136-145) mEq/L Potassium 4.0 (3.5-4.5) mEq/L Chloride 107 (98-109) mEq/L Carbon Dioxide 20 (19-29) mEq/L BUN 26 H (7-20) mg/dL Creatinine 0.96 (0.57-1.11) mg/dL Glucose 155 H (70-99) mg/dL Calcium 9.2 (8.6-10.8) mg/dL AST 10 (5-34) Units/L ALT 15 (0-55) Units/L Alkaline Phosphatase 55 (38-126) Units/L Albumin 2.8 L (3.5-5.0) g/dL Calcium panel 12/31/16 Range/Units 15:43 Calcium 9.2 (8.6-10.8) mg/dL Albumin 2.8 L (3.5-5.0) g/dL Pituitary panel 12/31/16 Range/Units 15:43 Sodium 139 (136-145) mEq/L Potassium 4.0 (3.5-4.5) mEq/L Chloride 107 (98-109) mEq/L Carbon Dioxide 20 (19-29) mEq/L BUN 26 H (7-20) mg/dL Creatinine 0.96 (0.57-1.11) mg/dL Glucose 155 H (70-99) mg/dL Calcium 9.2 (8.6-10.8) mg/dL Adrenal panel 12/31/16 Range/Units 15:43 Sodium 139 (136-145) mEq/L Potassium 4.0 (3.5-4.5) mEq/L Chloride 107 (98-109) mEq/L Carbon Dioxide 20 (19-29) mEq/L BUN 26 H (7-20) mg/dL Creatinine 0.96 (0.57-1.11) mg/dL Glucose 155 H (70-99) mg/dL Calcium 9.2 (8.6-10.8) mg/dL Total Bilirubin 0.4 (0.2-1.2) mg/dL AST 10 (5-34) Units/L ALT 15 (0-55) Units/L Alkaline Phosphatase 55 (38-126) Units/L Albumin 2.8 L (3.5-5.0) g/dL All other labs normal.
[2016-12-31] MEDS ORDERED: Ondansetron 4 MG/2 ML VIAL IVP PRN (18:10)
[2016-12-31 19:01] LABS: Bilirubin,Urine Negative (Negative); Blood,Urine Small (Negative); Clarity,Urine Cloudy (Clear); Color,Urine Yellow (Yellow); Glucose,Urine (UA) Normal (Normal); Ketones,Urine Negative (Negative); Leukocyte Esterase,Urine Small (Negative); Nitrite,Urine Negative (Negative); Protein,Urine Negative (Neg-Trace); Specific Gravity,Urine > 1.030 (1.010-1.025); Urobilinogen,Urine Normal (Normal)
[2016-12-31 19:04] LABS: Bacteria,Urine None Seen per hpf (None-Few); Hyaline Casts,Urine None Seen per lpf (None-Few); Squamous Epithelial Cell,Urine Many per lpf (None-Few)
[2017-01-01] MEDS: cefOXitin 1,000 MG in D5% in Water (Mini-Bag+) 100 ML IVPB SCH ×4 (04:34→23:52)
[2017-01-01] MEDS: 0.9 % Sodium Chloride 1,000 ML IVC SCH ×2 (04:35→16:33)
[2017-01-01] MEDS: *HR* Heparin 5,000 UNIT/ML VIAL SQ SCH ×2 (04:36→16:40)
[2017-01-01 06:16] LABS: Basophils % 0.3 %; Eosinophils # 0.1 K/mcL (0.0-0.6); Eosinophils % 0.8 %; Immature Granulocytes % 1.4 % (0-4); Lymphocytes # 1.5 K/mcL (0.6-4.6); Lymphocytes % 25.9 %; Mean Corpuscular HGB Conc 30.9 g/dL (31.6-35.5); Mean Corpuscular Hemoglobin 25.6 pg (28.0-33.3); Mean Platelet Volume 9.8 fL (9.4-12.4); Monocytes # 0.7 K/mcL (0.0-1.3); Monocytes % 11.2 %; Neutrophils # 3.6 K/mcL (1.6-8.9); Platelet Count 332 K/mcL (140-400); Red Blood Count 2.77 M/mcL (3.82-4.97); Segmented Neutrophils % 60.4 %
[2017-01-01 06:32] LABS: BUN/Creatinine Ratio 23 (6-26); Blood Urea Nitrogen 19 mg/dL (7-20); Calcium 8.2 mg/dL (8.6-10.8); Carbon Dioxide 18 mEq/L (19-29); Chloride 111 mEq/L (98-109); Glucose 124 mg/dL (70-99); Osmolality,Calculated 294 (280-300); Potassium 3.4 mEq/L (3.5-4.5); Sodium 140 mEq/L (136-145); eGFR For African Americans > 60 (> 60); eGFR For Non-African Americans > 60 (> 60)
[2017-01-01 06:34] LABS: Hemoglobin 7.1 g/dL (11.5-15.4)
[2017-01-01 06:47] LABS: Anisocytosis 2+ (Not Present)
[2017-01-01 06:48] LABS: Hypochromasia Present (Not Present); Poikilocytosis 1+ (Not Present)
[2017-01-01 06:49] LABS: Platelet Estimate Normal (Normal)
--- NOTE | 2017-01-01 11:19 | General Surgery Progress Note ---
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 Salas (4) Leukocytosis Current Visit: No Status: Resolved Resolved 14.9>5.9 Cefoxitin for emperic treatment Qualifiers: Leukocytosis type: unspecified Qualified Code(s): D72.829 - Elevated white blood cell count, unspecified (5) DVT prophylaxis Current Visit: No Status: Acute Heparin 5,000 units SQ twice daily for DVT prophylaxis Subjective Patient reports: no new complaints, feels better, tolerating liquids well, voiding w/o difficulty, flatus, bowel movement (states brown, no blood noted ), afebrile Objective Vital Signs - Last 8 Hours Temp Pulse Resp BP Pulse Ox 01/01/17 08:06 97.8 F 92 16 105/62 98 01/01/17 05:17 98.3 F 92 18 97 Intake and Output 12/31/16 01/01/17 01/01/17 23:59 07:59 15:59 Intake Total 480 / 480 460 / 460 550 / 550 Output Total 0 / 0 153 / 153 200 / 200 Balance 480 / 480 307 / 307 350 / 350 Intake: IV Fluids 100 / 100 Mefoxin 1,000 MG In 100 / 100 Dextrose 5% (Minibag+) 100 ML 100 ML @ 200 mls/ hr IVPB Q8HR [facility] Rx#: [id number] Oral 480 / 480 360 / 360 550 / 550 Output: Urine 0 / 0 150 / 150 Stool 3 / 3 Urine/Stool Mix 200 / 200 Other: Meal Breakfast Percent of Meal Consumed 0% Stool Size Small Stool Consistency liquid Stool Characteristics Tarry Stool Color Brown # Voids 1 - General physical appearance well developed, well nourished, no distress - Eyes normal ocular movement - ENT normal mucosa, atraumatic, normocephalic - Neck Neck exam: trachea midline - Respiratory normal expansion, normal respiratory effort, clear to auscultation - Cardiovascular Cardiovascular exam: Present: RRR - Abdomen Abdomen: Present: bowel sounds present, soft, non tender - Integumentary no rash - Neurologic CN 2-12 grossly intact - Musculoskeletal normal gait, normal posture - Psychiatric oriented to time, oriented to person, oriented to place, speech is normal, memory intact - Labs 01/01/17 05:45 01/01/17 05:45 Diabetes panel 01/01/17 Range/Units 05:45 Sodium 140 (136-145) mEq/L Potassium 3.4 L (3.5-4.5) mEq/L Chloride 111 H (98-109) mEq/L Carbon Dioxide 18 L (19-29) mEq/L BUN 19 (7-20) mg/dL Creatinine 0.83 (0.57-1.11) mg/dL Glucose 124 H (70-99) mg/dL Calcium 8.2 L (8.6-10.8) mg/dL Calcium panel 01/01/17 Range/Units 05:45 Calcium 8.2 L (8.6-10.8) mg/dL Pituitary panel 01/01/17 Range/Units 05:45 Sodium 140 (136-145) mEq/L Potassium 3.4 L (3.5-4.5) mEq/L Chloride 111 H (98-109) mEq/L Carbon Dioxide 18 L (19-29) mEq/L BUN 19 (7-20) mg/dL Creatinine 0.83 (0.57-1.11) mg/dL Glucose 124 H (70-99) mg/dL Calcium 8.2 L (8.6-10.8) mg/dL Adrenal panel 01/01/17 Range/Units 05:45 Sodium 140 (136-145) mEq/L Potassium 3.4 L (3.5-4.5) mEq/L Chloride 111 H (98-109) mEq/L Carbon Dioxide 18 L (19-29) mEq/L BUN 19 (7-20) mg/dL Creatinine 0.83 (0.57-1.11) mg/dL Glucose 124 H (70-99) mg/dL Calcium 8.2 L (8.6-10.8) mg/dL Consult Discharge Plan - Plan Referrals: Frank Mcdonald MD [Primary Care Provider] - - Attending Attestation I examined this patient and my medical decision-making was reviewed with the SCHOOL SUPERINTENDENT/PA/Advanced Practice Nurse/Resident Physician. I agree with the documented findings, disposition and treatment plan as described except to the extent set forth below. I evaluated the patient and assessment with the nurse practitioner present. Noted resolution of her white count and hemoglobin of 7.1. I think that the drop in her hemoglobin is related to the hydration and the rectal bleeding that she has experienced. Her white count decreased would not be due to the addition of antibiotics so I do think this was related to dehydration than anything else. Will refer for CT with by mouth and IV contrast tomorrow (the patient has had blood transfusion today so we will let her equilibrium today and repeat her CBC and order for the study tomorrow).
[2017-01-01 11:31] LABS: % Iron Saturation 29 % (15-50); Iron 52 mcg/dL (50-170); Transferrin 130 mg/dL (180-382)
[2017-01-01] MEDS ORDERED: 0.9 % Sodium Chloride 250 ML ONE (12:35)
[2017-01-01] MEDS ORDERED: 0.9 % Sodium Chloride Mini Bag 100 ML ONE (17:39)
--- NOTE | 2017-01-01 17:43 | Electrocardiograph Report ---
[place] [id number] Test Date: 2016-12-31 Pat Name: Tita Shabazz Department: 102 Room: 3A55 Gender: F Cytopathology Technologist: : [id number] Requested By: Deyanira Mulligan Order Number: [id number] Reading MD: Ladi Blanco Measurements Intervals [place] Rate: 118 P: 7 OR: 100 QRS: 21 QRSD: 86 T: 71 QT: 307 QTc: 377 Interpretive Statements SINUS TACHYCARDIA NONSPECIFIC T-WAVE ABNORMALITY ABNORMAL RHYTHM ECG Electronically Signed On 01-01-2017 17:41:41 EDT by Ladi Blanco
[2017-01-02] MEDS: *HR* Heparin 5,000 UNIT/ML VIAL SQ SCH (05:39)
[2017-01-02] MEDS: 0.9 % Sodium Chloride 1,000 ML IVC SCH (05:40)
[2017-01-02 05:51] LABS: Basophils % 0.7 %; Eosinophils # 0.1 K/mcL (0.0-0.6); Eosinophils % 1.5 %; Immature Granulocytes % 0.6 % (0-4); Lymphocytes # 1.5 K/mcL (0.6-4.6); Lymphocytes % 27.5 %; Mean Corpuscular HGB Conc 32.7 g/dL (31.6-35.5); Mean Corpuscular Hemoglobin 26.9 pg (28.0-33.3); Mean Corpuscular Volume 82.4 fL (83.0-100.0); Mean Platelet Volume 9.7 fL (9.4-12.4); Monocytes # 0.6 K/mcL (0.0-1.3); Monocytes % 11.7 %; Neutrophils # 3.1 K/mcL (1.6-8.9); Platelet Count 301 K/mcL (140-400); Red Blood Count 3.64 M/mcL (3.82-4.97); Red Cell Distribution Width 22.5 % (11.5-14.5)
[2017-01-02 06:00] LABS: BUN/Creatinine Ratio 13 (6-26); Blood Urea Nitrogen 9 mg/dL (7-20); Calcium 8.2 mg/dL (8.6-10.8); Carbon Dioxide 20 mEq/L (19-29); Chloride 110 mEq/L (98-109); Glucose 128 mg/dL (70-99); Osmolality,Calculated 292 (280-300); Potassium 2.9 mEq/L (3.5-4.5); Sodium 141 mEq/L (136-145); eGFR For African Americans > 60 (> 60); eGFR For Non-African Americans > 60 (> 60)
[2017-01-02 06:19] LABS: Hemoglobin 9.8 g/dL (11.5-15.4)
[2017-01-02 06:21] LABS: Anisocytosis 2+ (Not Present); Microcytosis Present (Not Present); Platelet Estimate Normal (Normal); Polychromasia 1+ (Not Present); Reactive Lymphocytes Present (Not Present)
[2017-01-02 07:51] VITALS: BP 137/81
[2017-01-02] MEDS: cefOXitin 1,000 MG in D5% in Water (Mini-Bag+) 100 ML IVPB SCH (09:00)
--- NOTE | 2017-01-02 15:04 | Discharge Summary ---
Date of Encounter: 01/02/17 Time of Encounter: 15:00 - Discharge Diagnosis (1) Rectal bleeding Priority: Primary Status: Resolved (2) Superior mesenteric vein thrombosis Priority: Secondary Status: Acute (3) S/P colectomy Priority: Secondary Status: Acute (4) Leukocytosis Priority: Secondary Status: Resolved Qualifiers: Leukocytosis type: unspecified Qualified Code(s): D72.829 - Elevated white blood cell count, unspecified - Discharge Medications Prescriptions: Amoxicillin/Clavulanate [Augmentin] 875 mg PO BIDWM #20 tablet Home Medications: Amlodipine Besylate 10 mg PO DAILY 11/22/16 [History] Aspirin Enteric Coated [Aspirin EC] 81 mg PO DAILY 11/22/16 [History] Calcium Carbonate/Vitamin D3 [Calcium 600 + Vit D Tablet] 1 each PO DAILY [History] Cyclosporine [Restasis Multidose] 1 drop OP BID 11/22/16 [History] Gluc Polanco/Chondro Polanco A/Vit C/Mn [Glucosamine Chondroitin Tab] 1 each PO DAILY 12/06 [History] LORazepam [Ativan] 1 mg PO HS 11/22/16 [History] Losartan/Hydrochlorothiazide [Hyzaar 100-25 Tablet] 1 each PO DAILY 11/22/16 [ History] Multivitamin [Multi-Day Vitamins] 1 each PO DAILY 11/22/16 [History] [place]-3/Dha/Epa/Fish Oil [Fish Oil 1,000 mg Softgel] 1,000 mg PO DAILY 11/22/16 [History] Omeprazole Magnesium [Prilosec Otc] 20 mg PO DAILY 11/22/16 [History] Potassium Chloride [Klor-Con 10] 20 meq PO DAILY 11/22/16 [History] Loperamide HCl [Imodium A-D] 2 mg PO Q4H PRN #60 tablet 12/17/16 [Rx] Ascorbate Calcium [Vitamin C] 500 mg PO BID 12/31/16 [History] Ferrous Sulfate 325 mg PO BID 12/31/16 [History] Amoxicillin/Clavulanate [Augmentin] 875 mg PO BIDWM #20 tablet 01/02/17 [Rx] Rivaroxaban [Xarelto] 20 mg PO 1700 #60 tablet 01/02/17 [Rx] Allergies/Adverse Reactions: Allergies No Known Allergies Allergy (Verified 12/31/16 14:23) General Surgery Exam Initial Vital Signs Temp Pulse Resp BP Pulse Ox 98.2 F 119 16 136/77 99 12/31/16 14:19 12/31/16 14:19 12/31/16 14:19 12/31/16 14:19 12/31/16 14:19 - General physical appearance well developed, well nourished, no distress - Eyes PERRL, normal ocular movement - ENT normal pinna, normal nares, normal mucosa, no hearing loss, no congestion - Neck no masses, no bruits, trachea midline - Respiratory normal expansion, normal respiratory effort, clear to auscultation - Cardiovascular Cardiovascular exam: Present: RRR, 15, 16 - Abdomen Abdomen general surgery: Present: bowel sounds present, soft, non tender - Incision Incision: Present: clean and dry, intact - Integumentary Integumentary general surgery: Present: warm and dry - Neurologic Present: CN 2-12 grossly intact - Musculoskeletal Present: normal gait, normal posture - Psychiatric Psychiatric general surgery: Present: appropriate, oriented to person, oriented to place, oriented to time, speech is normal, memory intact Date of admission: 12/31/16 17:46 Primary care physician: Frank Mcdonald MD Discharging clinician: Teofilo Salas ([facility]) Anticipated date of discharge: 01/02/17 - Patient Status Disposition: Home, Self-Care Condition: Good Functional capacity at discharge: independent ambulation Overall status at discharge: patient is back to baseline - Discharge Instructions Follow Up With: Frank Mcdonald MD [Primary Care Provider] - Teofilo Salas MD [Partnered Physician] - 01/09/17 3:35 pm Additional Instructions: Hold Xarelto until 01/06/17 as instructed - Diet and Activity Activity: increase activity as tolerated Diet: advance to your usual diet - Hospital Course Hospital course: Ms. Shabazz is a 86 year old female presented to the hospital with rectal bleeding. She is recently status post a colon resection and had an SMV thrombus. She was discharged home on Xarelto and had been doing well up until arrival to the emergency department with complaints of acute onset rectal bleeding. She was admitted to the hospital for observation and further workup. We did hold her Xarelto. She was started on broad spectrum antibiotics due to elevation in white blood cell count. Her rectal bleeding stopped within 12 hours of being in the hospital. She had had multiple normal bowel movements for the past 24 hours. She was given 2 units of packed red blood cells due to her hemoglobin dropping to 7.1. Today, her vital signs are stable and she is afebrile. Her hemoglobin level is stable. She has had no further evidence of rectal bleeding. We will begin discharge planning to home and transition her to oral antibiotics. I did instruct her not to restart her Xarelto until 2016. She will see Dr. Salas next week for a quick follow-up. - Time Spent with Patient Total time spent providing and/or coordinating discharge services: Less than 30 minutes Labs on day of discharge: Labs from last 24 hours 01/02/17 01/02/17 05:06 05:06 WBC 5.4 RBC 3.64 L Hgb 9.8 L D Hct 30.0 L MCV 82.4 L MCH 26.9 L MCHC 32.7 RDW 22.5 H Plt Count 301 MPV 9.7 Immature Gran % 0.6 Seg Neutrophils % 58.0 Lymphocytes % 27.5 Monocytes % 11.7 Eosinophils % 1.5 Basophils % 0.7 Neutrophils # 3.1 Lymphocytes # 1.5 Monocytes # 0.6 Eosinophils # 0.1 Basophils # 0.0 Reactive Lymphocytes Present A Platelet Estimate Normal Polychromasia 1+ A Anisocytosis 2+ A Microcytosis Present A Sodium 141 Potassium 2.9 L Chloride 110 H Carbon Dioxide 20 BUN 9 D Creatinine 0.70 Est GFR ( Amer) > 60 Est GFR (Non-Af Amer) > 60 BUN/Creatinine Ratio 13 Glucose 128 H Calculated Osmolality 292 Calcium 8.2 L - Impressions ITS Impressions Abdomen/Pelvis CT 01/02/17 08:20 IMPRESSION: 1. Persistent foci of extraluminal gas surrounding the colonic anastomosis. There is a small focus of extraluminal contrast posterior to the anastomosis. 2. Rim-enhancing fluid collection in the mesentery, posterior to the colonic anastomosis, is not significantly changed in size and is suspicious for abscess. 3. Unchanged thrombosis of the superior mesenteric vein at the level of the mesenteric fluid collection. Distal superior mesenteric vein, portal confluence, portal vein, and splenic vein are patent. 4. New, diffuse colonic wall thickening and pericolonic inflammatory changes suggest colitis, likely inflammatory or infectious in etiology. The findings were sent to the Radiology Results Communication Center at 9:26 am on 01/02/2017to be communicated to a licensed caregiver. D/ / 01/02/2017 09:36:55 Pool Navarro MD / earnold Interpreting Provider: Pool Navarro MD
== END 2017-01-02 16:21 | disposition home or self-care (01) ==
LOC: 2NENU 14:18 → EMEROO 14:18 → 3ANU 17:50
PROVIDERS: ADMIT Surgery; ATTEND Surgery